=== PATIENT | male | born 1980 ===

== ENCOUNTER 2017-11-06 19:15 | Inpatient (IN) | payer OTHER ==
[2017-11-06] MEDS ORDERED: Sodium Chloride 0.9% 1,000 ML IV ONE (19:58)
--- NOTE | 2017-11-06 20:06 | C.PDOC ---
History Of Present Illness 37 yo male, hx of pud and dm, presents with abdominal pain x 2 days. h/o of pud 1 yr ago. also h/o of etoh pancreatitis (+)n/v/d, no hememesis, no melena, hematochezia. Time Seen by Provider: 11/06/17 19:53 Chief Complaint (Nursing): Abdominal Pain Past Medical History Reviewed: Historical Data, Nursing Documentation, Vital Signs Vital Signs: Last Vital Signs Temp 97.4 F L 11/06/17 19:22 Pulse 98 H 11/06/17 19:22 Resp 20 11/06/17 19:22 BP 114/65 11/06/17 19:22 Pulse Ox 100 11/07/17 00:02 - Medical History PMH: Gastrointestinal Ulcer, Pancreatitis Family History: States: Unknown Family Hx - Social History Hx Alcohol Use: Yes Hx Substance Use: Yes - Immunization History Hx Tetanus Toxoid Vaccination: No Hx Influenza Vaccination: No Hx Pneumococcal Vaccination: No Review Of Systems Except As Marked, All Systems Reviewed And Found Negative. Gastrointestinal: Positive for: Nausea, Vomiting, Abdominal Pain, Diarrhea Physical Exam - Physical Exam Appears: Well, No Acute Distress Skin: Normal Color, Warm, Dry Eye(s): bilateral: Normal Inspection, PERRL, EOMI Nose: Normal Throat: Normal Neck: Normal Cardiovascular: Rhythm Regular Respiratory: Normal Breath Sounds Gastrointestinal/Abdominal: Normal Exam, Soft, Tenderness (epigastric), No Guarding, No Rebound Back: Normal Inspection Extremity: Normal ROM ED Course And Treatment - Laboratory Results Result Diagrams: 11/06/17 20:26 11/06/17 20:26 O2 Sat by Pulse Oximetry: 100 Medical Decision Making Medical Decision Making: r/o pud gastrits pancreatitis- labs imaging pending 1200: ct shows e/o of acut pancreatitis. discussed with dr fields accepts admission. Disposition - Disposition Disposition: HOSPITALIZED Disposition Time: 00:02 Condition: STABLE - Clinical Impression Clinical Impression: Pancreatitis Decision To Admit - Pt Status Changed To: Hospital Disposition Of: Inpatient - Admit Certification Admit to Inpatient:: After my assessment, the patient will require hospitalization for at least two midnights. This is because of the severity of symptoms shown, intensity of services needed, and/or the medical risk in this patient being treated as an outpatient. - InPatient: Physician Admission Certification:: pt with pancreatitis. - . Bed Request Type: Regular Admitting Physician: Russ Steiner Patient Diagnosis: Pancreatitis
[2017-11-06 20:32] LABS: BASO % 0.6 % (0.0-2.0); EOS # 0.2 K/uL (0.0-0.7); EOS % 3.8 % (0.0-4.0); HEMOGLOBIN 15.2 g/dL (12.0-18.0); LYMPH # 1.7 K/uL (1.0-4.3); LYMPH % 26.4 % (20.0-40.0); MEAN CELL VOLUME 82.2 fL (80.0-94.0); MEAN CORPUSCULAR HEMOGLOBIN 27.1 pg (27.0-31.0); MEAN PLATELET VOLUME 9.5 fL (7.2-11.7); MONO # 0.6 K/uL (0.0-0.8); MONO % 9.3 % (0.0-10.0); NEUT # 3.8 K/uL (1.8-7.0); NEUT % 59.9 % (50.0-75.0); RBC 5.62 Mil/uL (4.40-5.90); RED CELL DISTRIBUTION WIDTH 13.9 % (11.5-14.5); WHITE BLOOD COUNT 6.3 K/uL (4.8-10.8)
[2017-11-06 20:42] LABS: ALB/GLOB RATIO 1.2 (1.0-2.1); ALBUMIN 3.9 g/dL (3.5-5.0); ALT/SGPT 47 U/L (21-72); AST/SGOT 38 U/L (17-59); BLOOD UREA NITROGEN 11 mg/dL (9-20); CALCIUM 8.1 mg/dl (8.6-10.4); GFR AFRICAN-AMERICAN > 60; GFR NON-AFRICAN AMERICAN > 60; LIPASE 491 U/L (23-300)
[2017-11-06] MEDS ORDERED: Morphine 4 MG/ML VIAL ONE (20:57)
[2017-11-06 21:38] LABS: SQUAMOUS EPITHIAL < 1 /hpf (0-5); URINE BILIRUBIN NEGATIVE (NEGATIVE); URINE BLOOD 1+ (NEGATIVE); URINE CLARITY Clear (Clear); URINE COLOR Yellow (YELLOW); URINE GLUCOSE (UA) NORMAL (Normal); URINE LEUKOCYTE ESTERASE NEG Leu/uL (Negative); URINE NITRATE NEGATIVE (NEGATIVE); URINE PROTEIN NEGATIVE (NEGATIVE); URINE UROBILINOGEN NORMAL mg/dL (0.2-1.0)
[2017-11-06] MEDS ORDERED: Iodixanol 320 MG/ML 100 ML BOTTLE IV ONE (22:15)
--- NOTE | 2017-11-06 22:56 | CT ---
EXAM: CT Abdomen and Pelvis With Intravenous Contrast CLINICAL HISTORY: 37 years old, male; Pain; Abdominal pain; Generalized; Additional info: Upper abd pain h/o of pancreatitis TECHNIQUE: Axial computed tomography images of the abdomen and pelvis with intravenous contrast. All CT scans at this facility use one or more dose reduction techniques, viz.: automated exposure control; ma/kV adjustment per patient size (including targeted exams where dose is matched to indication; i.e. head); or iterative reconstruction technique. Coronal and sagittal reformatted images were created and reviewed. CONTRAST: 100 mL of [id number] administered intravenously. COMPARISON: No relevant prior studies available. FINDINGS: Lower thorax: Atelectasis/scarring at the left lung base. ABDOMEN: Liver: No acute abnormality as visualized. Gallbladder and bile ducts: No acute abnormality as visualized. Pancreas: Appears edematous without surrounding fluid/inflammatory changes. Spleen: No splenomegaly. Splenule. Adrenals: No acute abnormality as visualized. Kidneys and ureters: Evidence of nonobstructing right intrarenal calculus. Evaluation for calculi limited due to contrast. Symmetric emhancement. No hydronephrosis. Stomach and bowel: Evaluation of the bowel limited without enteric contrast. No obstruction. No definitive focus of mucosal thickening. Followup as warranted. PELVIS: Bladder: No acute abnormality as visualized. Reproductive: No acute abnormality as visualized. ABDOMEN and PELVIS: Intraperitoneal space: No free air. No significant fluid collection. Bones : No acute finding. Vasculature: No acute abnormality as visualized. No abdominal aortic aneurysm. Lymph nodes: No acute abnormality as visualized. IMPRESSION: Pancreas appears full/edematous without surrounding fluid/inflammatory changes. Correlate clinically to evaluate for/exclude acute pancreatitis. Evidence of nonobstructing right intrarenal calculus. Evaluation for calculi limited due to contrast. No obstructing calculus or hydronephrosis noted. Please see additional details/findings as above. Correlate clinically. Followup as warranted.
--- NOTE | 2017-11-07 01:00 | CP.PCM.HP ---
<Tamra Perez - Last Filed: 11/07/17 06:40> History of Present Illness - History of Present Illness History of Present Illness: Medicine Note for Hospital Service CC: abdominal pain n/v/d x 2 days. HPI: 37 yo Male with PMHx of DM and pancreatitis presents to the ED with abdominal pain, n/v/d x 2 days. Patient reports he started to feel nauseous and vomiting (up to 4 episodes), and diarrhea (up to 8 episodes) for the past 2 days. He admitted to some blood in stool after persistent episodes. Patient reports he has been unable to tolerate solids or liquids x 1 day. Did not take anything for the pain. Last drink was 2 weekends ago. Last time he saw his PMD was 2-3 months ago. Denied fever, chills, headache, chest pain, SOB, or urinary symptoms. PMHx: DM, Pancreatitis, Gastritis? Hx of gastric Ulcer (endoscopy in [place] done last year) PSHx: Denied Meds: Denied (used to take Metformin but was instructed by PMD to stop taking it ) All: NKDA SHx: Smokes 10 cigarretes a day for the past 5-10 years, drinks 2-3 beers on weekends, admits to marijuana use. FHx: Unremarkable PMD: Ameen, Russ Present on Admission - Present on Admission Any Indicators Present on Admission: No Past Patient History - Past Social History Smoking Status: Heavy Smoker > 10 Cigarettes Daily - ENDOCRINE/METABOLIC Hx Diabetes Mellitus Type 2: Yes - GASTROINTESTINAL Hx Pancreatitis: Yes - PSYCHIATRIC Hx Substance Use: Yes - ANESTHESIA Hx Anesthesia: No Meds Allergies/Adverse Reactions: Allergies Allergy/AdvReac Type Severity Reaction Status Date / Time No Known Allergies Allergy Unverified 11/06/17 19:26 Physical Exam - Constitutional Appears: No Acute Distress - Head Exam Head Exam: NORMAL INSPECTION, NORMOCEPHALIC - Eye Exam Eye Exam: EOMI, Normal appearance, PERRL Pupil Exam: NORMAL ACCOMODATION - ENT Exam ENT Exam: Mucous Membranes Moist, Normal Exam - Neck Exam Neck exam: Positive for: Normal Inspection - Respiratory Exam Respiratory Exam: Clear to Auscultation Bilateral, NORMAL BREATHING PATTERN. absent: Decreased Breath Sounds, Wheezes - Cardiovascular Exam Cardiovascular Exam: REGULAR RHYTHM - GI/Abdominal Exam GI & Abdominal Exam: Normal Bowel Sounds, Soft, Tenderness (TTP epigastric ). absent: Distended - Extremities Exam Extremities exam: Positive for: normal inspection, pedal pulses present. Negative for: pedal edema, tenderness - Neurological Exam Neurological exam: Alert, Oriented x3 - Psychiatric Exam Psychiatric exam: Normal Affect, Normal Mood - Skin Skin Exam: Dry, Intact, Normal Color, Warm Results - Vital Signs Recent Vital Signs: Last Vital Signs Temp 98.1 F 11/07/17 00:44 Pulse 58 L 11/07/17 00:44 Resp 16 11/07/17 00:44 BP 101/60 11/07/17 00:44 Pulse Ox 96 11/07/17 00:44 - Labs Result Diagrams: 11/06/17 20:26 11/06/17 20:26 Labs: Laboratory Results - last 24 hr 11/06/17 11/06/17 11/06/17 20:26 20:26 20:26 WBC 6.3 RBC 5.62 Hgb 15.2 Hct 46.2 MCV 82.2 MCH 27.1 MCHC 33.0 RDW 13.9 Plt Count 155 MPV 9.5 Neut % (Auto) 59.9 Lymph % (Auto) 26.4 [facility] % (Auto) 9.3 Eos % (Auto) 3.8 Baso % (Auto) 0.6 Neut # 3.8 Lymph # 1.7 [facility] # 0.6 Eos # 0.2 Baso # 0.0 Sodium 133 Potassium 4.0 Chloride 98 Carbon Dioxide 27 Anion Gap 12 BUN 11 Creatinine 1.1 Est GFR ( Amer) > 60 Est GFR (Non-Af Amer) > 60 Random Glucose 79 Calcium 8.1 L Total Bilirubin 0.9 AST 38 ALT 47 Alkaline Phosphatase 83 Total Protein 7.2 Albumin 3.9 Globulin 3.2 Albumin/Globulin Ratio 1.2 Lipase 491 H Urine Color Yellow Urine Clarity Clear Urine pH 5.0 Ur Specific [place] 1.028 Urine Protein Negative Urine Glucose (UA) Normal Urine Ketones Negative Urine Blood 1+ H Urine Nitrate Negative Urine Bilirubin Negative Urine Urobilinogen Normal Ur Leukocyte Esterase Neg Urine WBC (Auto) < 1 Urine RBC (Auto) 11 H Ur Squamous Epith Cells < 1 Alcohol, Quantitative 11/06/17 20:54 WBC RBC Hgb Hct MCV MCH MCHC RDW Plt Count MPV Neut % (Auto) Lymph % (Auto) [facility] [facility] % (Auto) Eos % (Auto) Baso % (Auto) Neut # Lymph # [facility] [facility] # Eos # Baso # Sodium Potassium Chloride Carbon Dioxide Anion Gap BUN Creatinine Est GFR ( Amer) Est GFR (Non-Af Amer) Random Glucose Calcium Total Bilirubin AST ALT Alkaline Phosphatase Total Protein Albumin Globulin Albumin/Globulin Ratio Lipase Urine Color Urine Clarity Urine pH Ur Specific [place] Urine Protein Urine Glucose (UA) Urine Ketones Urine Blood Urine Nitrate Urine Bilirubin Urine Urobilinogen Ur Leukocyte Esterase Urine WBC (Auto) Urine RBC (Auto) Ur Squamous Epith Cells Alcohol, Quantitative < 10 Assessment & Plan - Assessment and Plan (Free Text) Assessment: 37 yo Male with PMHx of DM and pancreatitis presents to the ED with abdominal pain, n/v/d x 2 days, found to have pancreatitis and possible gastroenteritis. Plan: Pancreatitis Lipase 491, f/u amylase Will start on liquid diet this morning, will monitor and adjust diet as tolerated Imaging: CT Abdomen and Pelvis with PO contrast only- Pancreas appears full/edematous without surrounding fluid/inflammatory changes. Correlate clinically to evaluate for/exclude acute pancreatitis. Evidence of nonobstructing right intrarenal calculus. Evaluation for calculi limited due to contrast. No obstructing calculus or hydronephrosis noted. Meds: NS @ 150cc/hr Morphine PRN, Zofran PRN Gastroenteritis Fluid levels noted on CT abdomen and pelvis - indicative of diarrhea F/U stool studies, stool occult Hx DM F/U HbA1C Hx Gastritis? Gastric Ulcer Hx of Tobacco Use Disorder Smoking Cessation encouraged Nicotine patch Prophylatic Measures GI PPX: Protonix 40mg IVP daily DVT PPX: SCDs, held VTE - due to reported blood in stool DW Dr. Steiner, Tamra Perez DO, PGY-1 <Russ Steiner P - Last Filed: 11/07/17 08:34> Results - Vital Signs Recent Vital Signs: Last Vital Signs Temp 97.7 F 11/07/17 02:31 Pulse 61 11/07/17 02:31 Resp 18 11/07/17 02:31 BP 114/71 11/07/17 02:31 Pulse Ox 97 11/07/17 02:31 - Labs Result Diagrams: 11/07/17 07:50 11/07/17 07:50 Labs: Laboratory Results - last 24 hr 11/06/17 11/06/17 11/06/17 20:26 20:26 20:26 WBC 6.3 RBC 5.62 Hgb 15.2 Hct 46.2 MCV 82.2 MCH 27.1 MCHC 33.0 RDW 13.9 Plt Count 155 MPV 9.5 Neut % (Auto) 59.9 Lymph % (Auto) 26.4 [facility] % (Auto) 9.3 Eos % (Auto) 3.8 Baso % (Auto) 0.6 Neut # 3.8 Lymph # 1.7 [facility] # 0.6 Eos # 0.2 Baso # 0.0 Sodium 133 Potassium 4.0 Chloride 98 Carbon Dioxide 27 Anion Gap 12 BUN 11 Creatinine 1.1 Est GFR ( Amer) > 60 Est GFR (Non-Af Amer) > 60 Random Glucose 79 Calcium 8.1 L Total Bilirubin 0.9 AST 38 ALT 47 Alkaline Phosphatase 83 Total Protein 7.2 Albumin 3.9 Globulin 3.2 Albumin/Globulin Ratio 1.2 Triglycerides Cholesterol HDL Cholesterol Lipase 491 H Urine Color Yellow Urine Clarity Clear Urine pH 5.0 Ur Specific [place] 1.028 Urine Protein Negative Urine Glucose (UA) Normal Urine Ketones Negative Urine Blood 1+ H Urine Nitrate Negative Urine Bilirubin Negative Urine Urobilinogen Normal Ur Leukocyte Esterase Neg Urine WBC (Auto) < 1 Urine RBC (Auto) 11 H Ur Squamous Epith Cells < 1 Alcohol, Quantitative Influenza Typ A,B (EIA) 11/06/17 11/07/17 11/07/17 20:54 06:44 07:50 WBC RBC Hgb Hct MCV MCH MCHC RDW Plt Count MPV Neut % (Auto) Lymph % (Auto) [facility] % (Auto) Eos % (Auto) Baso % (Auto) Neut # Lymph # [facility] [facility] # Eos # Baso # Sodium 133 Potassium 4.0 Chloride 100 Carbon Dioxide 28 Anion Gap 10 BUN 8 L Creatinine 1.1 Est GFR ( Amer) > 60 Est GFR (Non-Af Amer) > 60 Random Glucose 81 Calcium 7.8 L Total Bilirubin 0.7 AST 33 ALT 43 Alkaline Phosphatase 68 Total Protein 6.1 L Albumin 3.4 L Globulin 2.8 Albumin/Globulin Ratio 1.2 Triglycerides 78 Cholesterol 108 HDL Cholesterol 27 L Lipase Urine Color Urine Clarity Urine pH Ur Specific [place] Urine Protein Urine Glucose (UA) Urine Ketones Urine Blood Urine Nitrate Urine Bilirubin Urine Urobilinogen Ur Leukocyte Esterase Urine WBC (Auto) Urine RBC (Auto) Ur Squamous Epith Cells Alcohol, Quantitative < 10 Influenza Typ A,B (EIA) Negative for flu a/b 11/07/17 07:50 WBC 5.0 RBC 5.13 Hgb 14.1 Hct 42.8 MCV 83.4 MCH 27.5 MCHC 33.0 RDW 13.7 Plt Count 141 MPV 9.8 Neut % (Auto) 53.1 Lymph % (Auto) 30.7 [facility] % (Auto) 12.3 H Eos % (Auto) 3.1 Baso % (Auto) 0.8 Neut # 2.7 Lymph # 1.5 [facility] # 0.6 Eos # 0.2 Baso # 0.0 Sodium Potassium Chloride Carbon Dioxide Anion Gap BUN Creatinine Est GFR ( Amer) Est GFR (Non-Af Amer) Random Glucose Calcium Total Bilirubin AST ALT Alkaline Phosphatase Total Protein Albumin Globulin Albumin/Globulin Ratio Triglycerides Cholesterol HDL Cholesterol Lipase Urine Color Urine Clarity Urine pH Ur Specific [place] Urine Protein Urine Glucose (UA) Urine Ketones Urine Blood Urine Nitrate Urine Bilirubin Urine Urobilinogen Ur Leukocyte Esterase Urine WBC (Auto) Urine RBC (Auto) Ur Squamous Epith Cells Alcohol, Quantitative Influenza Typ A,B (EIA) Attending/Attestation - Attestation I have personally seen and examined this patient.: Yes I have fully participated in the care of the patient.: Yes I have reviewed all pertinent clinical information: Yes Notes (Text): Assessment GE by symptoms, but ? slight pancreatic edema without surrounding stranding, lipase 491 H/o peptic ulcer Alcoholism mentions few beers a wk Plan Symptomatic, supportive care IVF Start clear liquid diet advance as tolerated Stool w/u See orders for detail.
[2017-11-07] MEDS ORDERED: Sodium Chloride 0.9% 1,000 ML IV SCH (03:00)
[2017-11-07] MEDS: Sodium Chloride 0.9% 1,000 ML IV SCH ×3 (05:38→21:50)
[2017-11-07 08:03] LABS: BASO % 0.8 % (0.0-2.0); EOS # 0.2 K/uL (0.0-0.7); EOS % 3.1 % (0.0-4.0); HEMOGLOBIN 14.1 g/dL (12.0-18.0); LYMPH # 1.5 K/uL (1.0-4.3); LYMPH % 30.7 % (20.0-40.0); MEAN CELL VOLUME 83.4 fL (80.0-94.0); MEAN CORPUSCULAR HEMOGLOBIN 27.5 pg (27.0-31.0); MEAN PLATELET VOLUME 9.8 fL (7.2-11.7); MONO # 0.6 K/uL (0.0-0.8); MONO % 12.3 % (0.0-10.0); NEUT # 2.7 K/uL (1.8-7.0); NEUT % 53.1 % (50.0-75.0); RBC 5.13 Mil/uL (4.40-5.90); RED CELL DISTRIBUTION WIDTH 13.7 % (11.5-14.5)
[2017-11-07 08:25] LABS: ALB/GLOB RATIO 1.2 (1.0-2.1); ALBUMIN 3.4 g/dL (3.5-5.0); ALT/SGPT 43 U/L (21-72); AST/SGOT 33 U/L (17-59); BLOOD UREA NITROGEN 8 mg/dL (9-20); CALCIUM 7.8 mg/dl (8.6-10.4); GFR AFRICAN-AMERICAN > 60; GFR NON-AFRICAN AMERICAN > 60; HDL CHOLESTEROL 27 mg/dL (30-70)
[2017-11-07 08:35] LABS: LDL CHOLESTEROL 61 mg/dL (0-129)
[2017-11-07 09:09] VITALS: RESP 20
[2017-11-07] MEDS: Ciprofloxacin 400mg/200ml D5W 400 MG/200 ML BAG IVPB SCH ×2 (12:01→23:43)
--- NOTE | 2017-11-07 13:57 | CP.PCM.PN ---
<Meagan Keyes - Last Filed: 11/07/17 13:54> Subjective - Date & Time of Evaluation Date of Evaluation: 11/07/17 Time of Evaluation: 13:54 - Subjective Subjective: Medicine progress note for Dr. Goldman's service Patient was seen and examined at bedside in no acute distress. Patient reports feeling better than previously, however, he recently took pain medication. He says he is tolerating his liquid diet, denies nausea, vomiting, and diarrhea. Patient states his last drink was 2 weeks ago and he only had one beer. He states he used to drink heavily and was hospitalized twice for pancreatitis when he was 16 years old. Patient says he stopped drinking heavily since age 19. Patient also reports being hospitalized about 1 year ago for bleeding ulcers. Otherwise, patient denies chest pain, headaches, fevers, leg pain, and dizziness. Objective - Vital Signs/Intake and Output Vital Signs (last 24 hours): Temp Pulse Resp BP Pulse Ox 97.9 F 51 L 20 129/61 95 11/07/17 07:40 11/07/17 07:40 11/07/17 07:40 11/07/17 07:40 11/07/17 07:40 Intake and Output: 11/07/17 11/07/17 06:59 18:59 Intake Total 375 Balance 375 - Medications Medications: Current Medications Sodium Chloride (Sodium Chloride 0.9%) 1,000 mls @ 150 mls/hr IV .Q6H40M [facility] Last Admin: 11/07/17 11:20 Dose: 150 mls/hr Ciprofloxacin (Cipro 400mg/200ml Dsw) 400 mg in 200 mls @ 133 mls/hr IVPB Q12H [facility] Last Admin: 11/07/17 12:01 Dose: 133 mls/hr Metronidazole (Flagyl) 500 mg in 100 mls @ 100 mls/hr IVPB Q8 [facility] Ketorolac Tromethamine (Toradol) 30 mg IVP Q6 PRN PRN Reason: Pain, moderate (4-7) Stop: 11/09/17 11:25 Nicotine (Nicoderm Cq) 1 patch TD DAILY [facility] Last Admin: 11/07/17 11:30 Dose: Not Given Ondansetron HCl (Zofran Inj) 4 mg IVP Q6H [facility] Last Admin: 11/07/17 11:44 Dose: Not Given Pantoprazole Sodium (Protonix Inj) 40 mg IVP DAILY [facility] Last Admin: 11/07/17 11:16 Dose: 40 mg Pneumococcal Polyvalent Vaccine (Pneumovax 23 Vaccine) 0.5 ml IM .ONCE ONE Stop: 11/08/17 10:01 - Labs Labs: 11/07/17 07:50 11/07/17 07:50 - Constitutional Appears: Non-toxic, No Acute Distress - Head Exam Head Exam: ATRAUMATIC, NORMAL INSPECTION - Eye Exam Eye Exam: EOMI - ENT Exam ENT Exam: Mucous Membranes Moist - Respiratory Exam Respiratory Exam: Clear to Ausculation Bilateral, NORMAL BREATHING PATTERN. absent: Rhonchi, Wheezes, Respiratory Distress - Cardiovascular Exam Cardiovascular Exam: REGULAR RHYTHM, +S1, +S2 - GI/Abdominal Exam GI & Abdominal Exam: Soft, Tenderness (mild tenderness with deep palpation), Normal Bowel Sounds. absent: Guarding - Extremities Exam Extremities Exam: Normal Inspection. absent: Pedal Edema, Tenderness - Neurological Exam Neurological Exam: Alert, Awake, Oriented x3 - Psychiatric Exam Psychiatric exam: Normal Affect, Normal Mood - Skin Skin Exam: Dry, Intact, Normal Color, Warm Assessment and Plan - Assessment and Plan (Free Text) Plan: Assessment: 37 yo Male with PMHx of DM and pancreatitis presents to the ED with abdominal pain, n/v/d x 2 days, found to have pancreatitis and possible gastroenteritis. Plan: Pancreatitis Assesment & Plan: * Lipase 491, amylase 3231 * Started liquid diet on morning of 09/07, will monitor and adjust diet as tolerated * CT Abdomen and Pelvis with PO contrast only- Pancreas appears full/edematous without surrounding fluid/inflammatory changes. Correlate clinically to evaluate for/exclude acute pancreatitis. Evidence of nonobstructing right intrarenal calculus. Evaluation for calculi limited due to contrast. No obstructing calculus or hydronephrosis noted. * Abdominal US: ordered, f/u results; patient is NPO for procedure; can continue liquid diet after completion of US. Medications: * NS @ 150cc/hr * Morphine PRN, Zofran PRN Gastroenteritis Assesment & Plan: * Fluid levels noted on CT abdomen and pelvis - indicative of diarrhea * F/U stool studies, stool occult * Started Cipro 400mg IV Q12h and Flagyl 500mg IV Q8h (11/07/17) Hx DM Assesment & Plan: * HbA1C: 5.9 * Continue to monitor, accucheck Hx Gastric Ulcer Hx of Tobacco Use Disorder Assesment & Plan: * Smoking Cessation encouraged * Nicotine patch Prophylatic Measures * GI PPX: Protonix 40mg IVP daily * DVT PPX: SCDs, held VTE - due to reported blood in stool <Kristina Goldman V - Last Filed: 11/08/17 08:38> Objective - Vital Signs/Intake and Output Vital Signs (last 24 hours): Temp Pulse Resp BP Pulse Ox 98.0 F 55 L 20 108/65 97 11/08/17 08:26 11/08/17 08:26 11/08/17 08:26 11/08/17 08:26 11/08/17 08:26 Intake and Output: 11/08/17 11/08/17 06:59 18:59 Intake Total 1000 Balance 1000 - Medications Medications: Current Medications Sodium Chloride (Sodium Chloride 0.9%) 1,000 mls @ 150 mls/hr IV .Q6H40M [facility] Last Admin: 11/08/17 07:36 Dose: 150 mls/hr Ciprofloxacin (Cipro 400mg/200ml Dsw) 400 mg in 200 mls @ 133 mls/hr IVPB Q12H [facility] Last Admin: 11/07/17 23:43 Dose: 133 mls/hr Metronidazole (Flagyl) 500 mg in 100 mls @ 100 mls/hr IVPB Q8 [facility] Last Admin: 11/08/17 05:32 Dose: 100 mls/hr Morphine Sulfate (Morphine) 1 mg IV Q6 PRN PRN Reason: Pain, severe (8-10) Last Admin: 11/07/17 22:10 Dose: 1 mg Nicotine (Nicoderm Cq) 1 patch TD DAILY [facility] Last Admin: 11/07/17 11:30 Dose: Not Given Ondansetron HCl (Zofran Inj) 4 mg IVP Q6H [facility] Last Admin: 11/08/17 03:09 Dose: Not Given Pantoprazole Sodium (Protonix Inj) 40 mg IVP DAILY [facility] Last Admin: 11/07/17 11:16 Dose: 40 mg Pneumococcal Polyvalent Vaccine (Pneumovax 23 Vaccine) 0.5 ml IM .ONCE ONE Stop: 11/08/17 10:01 - Labs Labs: 11/07/17 07:50 11/07/17 07:50 Attending/Attestation - Attestation I have personally seen and examined this patient.: Yes I have fully participated in the care of the patient.: Yes I have reviewed all pertinent clinical information, including history, physical exam and plan: Yes Notes (Text): This is a late computer entry for 11/07/2017. Patient seen, examined, case discussed with medical billing coordinator. Patient seen at bedside. Patient has improving abdominal pain patient is ordered for abdominal ultrasound to rule out gallstones. Reviewed lipid panel does not appear to have hypertriglyceridemia. Patient does admit to alcohol use but denies acute use over the past 3 days. Patient reports he has not had a bowel movement as of this morning. Awaiting bowel movement for stool studies. Patient started on Cipro and Flagyl to come her for infectious causes of colitis. Patient reports he has had a recent endoscopy about a year ago for bleeding gastric ulcer. Will refrain from NSAID use. Patient will call for abdominal ultrasound and resume liquid diet will monitor for bowel movement will continue IV fluids Will monitor patient and see if it's possible to advance diet and for possible discharge planning in the next 1-2 days. Assessment/Plan 1) Pancreatitis Assesment & Plan: * Lipase 491, amylase 3231 * Palermo's Criteria: 0 * Started liquid diet on morning of 11/07, will monitor and adjust diet as tolerated * CT Abdomen and Pelvis with PO contrast only (11/06/17)- Pancreas appears full/ edematous without surrounding fluid/inflammatory changes. Correlate clinically to evaluate for/exclude acute pancreatitis. Evidence of nonobstructing right intrarenal calculus. Evaluation for calculi limited due to contrast. No obstructing calculus or hydronephrosis noted. * Abdominal US (11/07/17): echogenic liver may be seen in setting of hepatic parenchymal disease or fatty infiltration Medications: * NS @ 150cc/hr * Morphine PRN, Zofran PRN 2) Gastroenteritis Assesment & Plan: * Fluid levels noted on CT abdomen and pelvis - indicative of diarrhea * F/U stool studies including ova and parasite, culture, C. Dif, and leukocytes , stool occult * Started Cipro 400mg IV Q12h and Flagyl 500mg IV Q8h (11/07/17) 3) History of Diabetes Assesment & Plan: * HbA1C: 5.9 * Controlled * Continue to monitor, accuchecks QAC and HS 4) Hx Gastric Ulcer Assesment & Plan: * Refrain from NSAIDs 5) Hx of Tobacco Use Disorder Assesment & Plan: * Smoking Cessation encouraged * Nicotine patch 6) Prophylatic Measures * GI PPX: Protonix 40mg IVP daily * DVT PPX: SCDs, held VTE - due to reported blood in stool
[2017-11-07] MEDS: metroNIDAZOLE IV 500 mg/100 ml 500 MG/100 ML BAG IVPB SCH ×2 (14:27→22:10)
--- NOTE | 2017-11-07 15:46 | US ---
HISTORY: r/o pancreatitis COMPARISON: CT abdomen pelvis with IV contrast performed 11/06/17 TECHNIQUE: Sonographic evaluation of the abdomen. FINDINGS: LIVER: Measures 13.3 cm in sagittal dimension. Echogenic liver may be seen in setting of hepatic parenchymal disease or fatty infiltration. No focal hepatic mass identified. The main portal vein appears patent with normal directional flow. No intrahepatic bile duct dilatation. GALLBLADDER: No gallstones. No gallbladder wall thickening. Negative sonographic Tran's sign as assessed by the subway operator. COMMON BILE DUCT: Measures 4 mm. PANCREAS: Not well visualized. RIGHT KIDNEY: Measures 9.5 x 5.6 x 5.4cm. No obstructing calculus or hydronephrosis identified. LEFT KIDNEY: Measures 10.2 x 5.1 x 5.6cm. No obstructing calculus or hydronephrosis identified. SPLEEN: Measures approximately 10.8 cm. AORTA: Limited views appear unremarkable. IVC: Limited views appear unremarkable. OTHER FINDINGS: None. IMPRESSION: Echogenic liver may be seen in setting of hepatic parenchymal disease or fatty infiltration.
[2017-11-08] MEDS: Sodium Chloride 0.9% 1,000 ML IV SCH ×2 (02:10→07:36)
[2017-11-08] MEDS: metroNIDAZOLE IV 500 mg/100 ml 500 MG/100 ML BAG IVPB SCH (05:32)
--- NOTE | 2017-11-08 06:49 | CP.PCM.PN ---
Subjective - Date & Time of Evaluation Date of Evaluation: 11/08/17 Time of Evaluation: 06:49 Objective - Vital Signs/Intake and Output Vital Signs (last 24 hours): Temp Pulse Resp BP Pulse Ox 97.5 F L 52 L 20 101/66 96 11/07/17 23:40 11/07/17 23:40 11/07/17 23:40 11/07/17 23:40 11/07/17 23:40 Intake and Output: 11/07/17 11/08/17 18:59 06:59 Intake Total 1700 1000 Balance 1700 1000 - Medications Medications: Current Medications Sodium Chloride (Sodium Chloride 0.9%) 1,000 mls @ 150 mls/hr IV .Q6H40M [facility] Last Admin: 11/08/17 02:10 Dose: Not Given Ciprofloxacin (Cipro 400mg/200ml Dsw) 400 mg in 200 mls @ 133 mls/hr IVPB Q12H [facility] Last Admin: 11/07/17 23:43 Dose: 133 mls/hr Metronidazole (Flagyl) 500 mg in 100 mls @ 100 mls/hr IVPB Q8 [facility] Last Admin: 11/08/17 05:32 Dose: 100 mls/hr Morphine Sulfate (Morphine) 1 mg IV Q6 PRN PRN Reason: Pain, severe (8-10) Last Admin: 11/07/17 22:10 Dose: 1 mg Nicotine (Nicoderm Cq) 1 patch TD DAILY [facility] Last Admin: 11/07/17 11:30 Dose: Not Given Ondansetron HCl (Zofran Inj) 4 mg IVP Q6H [facility] Last Admin: 11/08/17 03:09 Dose: Not Given Pantoprazole Sodium (Protonix Inj) 40 mg IVP DAILY [facility] Last Admin: 11/07/17 11:16 Dose: 40 mg Pneumococcal Polyvalent Vaccine (Pneumovax 23 Vaccine) 0.5 ml IM .ONCE ONE Stop: 11/08/17 10:01 - Labs Labs: 11/07/17 07:50 11/07/17 07:50
[2017-11-08 08:27] VITALS: BP 108/65; PULSE 55; TEMP 98; O2SAT 97
[2017-11-08 09:30] LABS: BASO % 0.8 % (0.0-2.0); EOS # 0.2 K/uL (0.0-0.7); EOS % 3.8 % (0.0-4.0); HEMOGLOBIN 14.1 g/dL (12.0-18.0); LYMPH # 1.5 K/uL (1.0-4.3); LYMPH % 37.4 % (20.0-40.0); MEAN CELL VOLUME 82.5 fL (80.0-94.0); MEAN CORPUSCULAR HEMOGLOBIN 26.9 pg (27.0-31.0); MEAN CORPUSCULAR HGB CONC 32.6 g/dL (33.0-37.0); MEAN PLATELET VOLUME 10.1 fL (7.2-11.7); MONO # 0.5 K/uL (0.0-0.8); MONO % 11.3 % (0.0-10.0); NEUT # 1.9 K/uL (1.8-7.0); NEUT % 46.7 % (50.0-75.0); NRBC % 0.3 % (0.0-2.0); RBC 5.24 Mil/uL (4.40-5.90); RED CELL DISTRIBUTION WIDTH 13.6 % (11.5-14.5)
[2017-11-08 09:40] LABS: ALBUMIN 3.3 g/dL (3.5-5.0); ALT/SGPT 34 U/L (21-72); AST/SGOT 25 U/L (17-59); BLOOD UREA NITROGEN 7 mg/dL (9-20); GFR AFRICAN-AMERICAN > 60; GFR NON-AFRICAN AMERICAN > 60; MAGNESIUM 1.6 mg/dL (1.6-2.3)
[2017-11-08] MEDS ORDERED: Pneumococcal 23-Valent Vaccine IM ONE (10:00)
[2017-11-08] MEDS ORDERED: Influenza Vaccine 60 mcg/0.5 mL SYR (4YR UP) IM ONE (10:00)
[2017-11-08] MEDS: Ciprofloxacin 400mg/200ml D5W 400 MG/200 ML BAG IVPB SCH (10:39)
--- NOTE | 2017-11-08 15:34 | CP.PCM.DIS ---
<Meagan Keyes - Last Filed: 11/08/17 15:31> Provider - Provider Date of Admission: 11/06/17 23:21 Attending physician: Kristina Goldman DO Primary care physician: Dr. Russ Raphael Time Spent in preparation of Discharge (in minutes): 45 Hospital Course - Lab Results Lab Results: Most Recent Lab Values WBC 4.0 K/uL (4.8-10.8) L 11/08/17 09:05 RBC 5.24 Mil/uL (4.40-5.90) 11/08/17 09:05 Hgb 14.1 g/dL (12.0-18.0) 11/08/17 09:05 Hct 43.3 % (35.0-51.0) 11/08/17 09:05 MCV 82.5 fL (80.0-94.0) 11/08/17 09:05 MCH 26.9 pg (27.0-31.0) L 11/08/17 09:05 MCHC 32.6 g/dL (33.0-37.0) L 11/08/17 09:05 RDW 13.6 % (11.5-14.5) 11/08/17 09:05 Plt Count 140 K/uL (130-400) 11/08/17 09:05 MPV 10.1 fL (7.2-11.7) 11/08/17 09:05 Neut % (Auto) 46.7 % (50.0-75.0) L 11/08/17 09:05 Lymph % (Auto) 37.4 % (20.0-40.0) 11/08/17 09:05 [place] % (Auto) 11.3 % (0.0-10.0) H 11/08/17 09:05 Eos % (Auto) 3.8 % (0.0-4.0) 11/08/17 09:05 Baso % (Auto) 0.8 % (0.0-2.0) 11/08/17 09:05 Neut # 1.9 K/uL (1.8-7.0) 11/08/17 09:05 Lymph # 1.5 K/uL (1.0-4.3) 11/08/17 09:05 [place] # 0.5 K/uL (0.0-0.8) 11/08/17 09:05 Eos # 0.2 K/uL (0.0-0.7) 11/08/17 09:05 Baso # 0.0 K/uL (0.0-0.2) 11/08/17 09:05 Sodium 136 mmol/L (132-148) 11/08/17 09:05 Potassium 3.9 mmol/L (3.6-5.2) 11/08/17 09:05 Chloride 102 mmol/L (98-107) 11/08/17 09:05 Carbon Dioxide 26 mmol/L (22-30) 11/08/17 09:05 Anion Gap 12 (10-20) 11/08/17 09:05 BUN 7 mg/dL (9-20) L 11/08/17 09:05 Creatinine 1.1 mg/dL (0.8-1.5) 11/08/17 09:05 Est GFR ( Amer) > 60 11/08/17 09:05 Est GFR (Non-Af Amer) > 60 11/08/17 09:05 POC Glucose (mg/dL) 117 mg/dL (65-110) H 11/08/17 11:24 Random Glucose 101 mg/dL (75-110) 11/08/17 09:05 Hemoglobin A1c 5.9 % (4.2-6.5) 11/07/17 07:50 Calcium 8.0 mg/dl (8.6-10.4) L 11/08/17 09:05 Phosphorus 2.8 mg/dL (2.5-4.5) 11/08/17 09:05 Magnesium 1.6 mg/dL (1.6-2.3) 11/08/17 09:05 Total Bilirubin 0.4 mg/dL (0.2-1.3) 11/08/17 09:05 AST 25 U/L (17-59) 11/08/17 09:05 ALT 34 U/L (21-72) 11/08/17 09:05 Alkaline Phosphatase 65 U/L (38-126) 11/08/17 09:05 Total Protein 6.7 g/dL (6.3-8.3) 11/08/17 09:05 Albumin 3.3 g/dL (3.5-5.0) L 11/08/17 09:05 Globulin 3.4 gm/dL (2.2-3.9) 11/08/17 09:05 Albumin/Globulin Ratio 1.0 (1.0-2.1) 11/08/17 09:05 Triglycerides 78 mg/dL (0-149) 11/07/17 07:50 Cholesterol 108 mg/dL (0-199) 11/07/17 07:50 LDL Cholesterol Direct 61 mg/dL (0-129) 11/07/17 07:50 HDL Cholesterol 27 mg/dL (30-70) L 11/07/17 07:50 Lipase 491 U/L (23-300) H 11/06/17 20:26 Urine Color Yellow (YELLOW) 11/06/17 20:26 Urine Clarity Clear (Clear) 11/06/17 20:26 Urine pH 5.0 (5.0-8.0) 11/06/17 20:26 Ur Specific [place] 1.028 (1.003-1.030) 11/06/17 20:26 Urine Protein Negative mg/dL (NEGATIVE) 11/06/17 20:26 Urine Glucose (UA) Normal mg/dL (Normal) 11/06/17 20:26 Urine Ketones Negative mg/dL (NEGATIVE) 11/06/17 20:26 Urine Blood 1+ (NEGATIVE) H 11/06/17 20:26 Urine Nitrate Negative (NEGATIVE) 11/06/17 20:26 Urine Bilirubin Negative (NEGATIVE) 11/06/17 20:26 Urine Urobilinogen Normal mg/dL (0.2-1.0) 11/06/17 20:26 Ur Leukocyte Esterase Neg Malorie/uL (Negative) 11/06/17 20:26 Urine WBC (Auto) < 1 /hpf (0-5) 11/06/17 20:26 Urine RBC (Auto) 11 /hpf (0-3) H 11/06/17 20:26 Ur Squamous Epith Cells < 1 /hpf (0-5) 11/06/17 20:26 Ur Random Amylase 3231 U/L (32-641) H 11/07/17 06:47 Stool Occult Blood Negative (NEGATIVE) 11/07/17 21:08 Alcohol, Quantitative < 10 mg/dl (0-10) 11/06/17 20:54 Influenza Typ A,B (EIA) Negative for flu a/b (NEGATIVE) 11/07/17 06:44 - Hospital Course Hospital Course: CC: abdominal pain n/v/d x 2 days. HPI: 37 yo Male with PMHx of DM and pancreatitis presents to the ED with abdominal pain, n/v/d x 2 days. Patient reports he started to feel nauseous and vomiting (up to 4 episodes), and diarrhea (up to 8 episodes) for the past 2 days. He admitted to some blood in stool after persistent episodes. Patient reports he has been unable to tolerate solids or liquids x 1 day. Did not take anything for the pain. Last drink was 2 weekends ago. Last time he saw his PMD was 2-3 months ago. Denied fever, chills, headache, chest pain, SOB, or urinary symptoms. PMD: Amana maria, Russ PMHx: DM, Pancreatitis, Gastritis? Hx of gastric Ulcer (endoscopy in [place] done last year) PSHx: Denied Meds: Denied (used to take Metformin but was instructed by PMD to stop taking it ) All: NKDA SHx: Smokes 10 cigarretes a day for the past 5-10 years, drinks 2-3 beers on weekends, admits to marijuana use. FHx: Unremarkable Hospital Course: Patient was admitted on 11/07/17 for pancreatitis. In the ED, labs were drawn, imaging was done, and the patient was given fluids, protonix, and zofran. CT of the abdomen/pelvis showed the pancreas appearing full/ edematous without surrounding fluid/inflammatory changes; Correlate clinically to evaluate for/exclude acute pancreatitis; evidence of nonobstructing right intrarenal calculus; evaluation for calculi limited due to contrast; no obstructing calculus or hydronephrosis noted. Patient was given morphine as needed for the pain and put on a liquid diet, which he tolerated without nausea , vomiting or diarrhea. Labs showed an elevated lipase and amylase. Patient was also suspected of having gastroenteritis (fluid levels noted on CT of abdomen/ pelvis). Stool occult was negative. Patient did not have any episodes of diarrhea while in the hospital; he has had one normal bowel movement. Patient was started on ciprofloxacin and flagyl on 11/07/17. Abdominal ultrasound was ordered and showed an echogenic liver, may be seen in setting of hepatic parenchymal disease or fatty infiltration. Patient was seen and examined in the morning of 11/08/17. Patient reports feeling better and only have mild pain. He has tolerated his liquid diet and is requesting a regular meal. Patient denies having nausea, vomiting, diarrhea. Patient has history of diabetes, which was monitored throughout hospital stay. Patient also has a history of smoking; patient was educated and advised to stop smoking. Patient was given nicoderm patch throughout his hospital stay. Patient is stable for discharge to home. Patient is advised to avoid all alcohol and to follow up with his PMD. Patient must continue oral antibiotics for 5 more days (for a total of 7 days of antibiotics). This is a brief summary of the hospital course. Please see EMR for more details. Discharge Exam - Head Exam Head Exam: ATRAUMATIC, NORMAL INSPECTION - Eye Exam Eye Exam: EOMI, Normal appearance - ENT Exam ENT Exam: Mucous Membranes Moist - Respiratory Exam Respiratory Exam: Clear to PA & Lateral, NORMAL BREATHING PATTERN, UNREMARKABLE. absent: Rales, Rhonchi, Wheezes, Respiratory Distress - Cardiovascular Exam Cardiovascular Exam: REGULAR RHYTHM, +S1, +S2 - GI/Abdominal Exam GI & Abdominal Exam: Normal Bowel Sounds, Soft, Tenderness (epigastric, with deep palpation). absent: Distended, Firm - Extremities Exam Extremities exam: normal inspection - Neurological Exam Neurological exam: Alert, Oriented x3 - Psychiatric Exam Psychiatric exam: Normal Affect, Normal Mood - Skin Skin Exam: Dry, Intact, Normal Color, Warm Discharge Plan - Discharge Medications Prescriptions: Ciprofloxacin [Cipro] 500 mg PO BID 5 Days tab Metronidazole [Flagyl] 500 mg PO TID 5 Days tablet - Follow Up Plan Condition: GOOD Disposition: HOME/ ROUTINE Instructions: How to Stop Smoking (DC), Pancreatitis (DC) Additional Instructions: Patient is stable for discharge to home. Patient must continue taking two antibiotics as prescribed. Ciprofloxacin 500mg PO BID- take 1 tablet twice a day by mouth for 5 days. Flagyl 500mg PO TID- take 1 tablet three times a day by mouth for 5 days. Patient must follow up with their PMD, Dr. Raphael, within one week of discharge. If symptoms reoccur or worsen, patient should return to the ED. <Kristina Goldman V - Last Filed: 11/08/17 20:58> Provider - Provider Date of Admission: 11/06/17 23:21 Attending physician: Kristina Goldman, DO Hospital Course - Lab Results Lab Results: Most Recent Lab Values WBC 4.0 K/uL (4.8-10.8) L 11/08/17 09:05 RBC 5.24 Mil/uL (4.40-5.90) 11/08/17 09:05 Hgb 14.1 g/dL (12.0-18.0) 11/08/17 09:05 Hct 43.3 % (35.0-51.0) 11/08/17 09:05 MCV 82.5 fL (80.0-94.0) 11/08/17 09:05 MCH 26.9 pg (27.0-31.0) L 11/08/17 09:05 MCHC 32.6 g/dL (33.0-37.0) L 11/08/17 09:05 RDW 13.6 % (11.5-14.5) 11/08/17 09:05 Plt Count 140 K/uL (130-400) 11/08/17 09:05 MPV 10.1 fL (7.2-11.7) 11/08/17 09:05 Neut % (Auto) 46.7 % (50.0-75.0) L 11/08/17 09:05 Lymph % (Auto) 37.4 % (20.0-40.0) 11/08/17 09:05 [place] % (Auto) 11.3 % (0.0-10.0) H 11/08/17 09:05 Eos % (Auto) 3.8 % (0.0-4.0) 11/08/17 09:05 Baso % (Auto) 0.8 % (0.0-2.0) 11/08/17 09:05 Neut # 1.9 K/uL (1.8-7.0) 11/08/17 09:05 Lymph # 1.5 K/uL (1.0-4.3) 11/08/17 09:05 [place] # 0.5 K/uL (0.0-0.8) 11/08/17 09:05 Eos # 0.2 K/uL (0.0-0.7) 11/08/17 09:05 Baso # 0.0 K/uL (0.0-0.2) 11/08/17 09:05 Sodium 136 mmol/L (132-148) 11/08/17 09:05 Potassium 3.9 mmol/L (3.6-5.2) 11/08/17 09:05 Chloride 102 mmol/L (98-107) 11/08/17 09:05 Carbon Dioxide 26 mmol/L (22-30) 11/08/17 09:05 Anion Gap 12 (10-20) 11/08/17 09:05 BUN 7 mg/dL (9-20) L 11/08/17 09:05 Creatinine 1.1 mg/dL (0.8-1.5) 11/08/17 09:05 Est GFR ( Amer) > 60 11/08/17 09:05 Est GFR (Non-Af Amer) > 60 11/08/17 09:05 POC Glucose (mg/dL) 117 mg/dL (65-110) H 11/08/17 11:24 Random Glucose 101 mg/dL (75-110) 11/08/17 09:05 Hemoglobin A1c 5.9 % (4.2-6.5) 11/07/17 07:50 Calcium 8.0 mg/dl (8.6-10.4) L 11/08/17 09:05 Phosphorus 2.8 mg/dL (2.5-4.5) 11/08/17 09:05 Magnesium 1.6 mg/dL (1.6-2.3) 11/08/17 09:05 Total Bilirubin 0.4 mg/dL (0.2-1.3) 11/08/17 09:05 AST 25 U/L (17-59) 11/08/17 09:05 ALT 34 U/L (21-72) 11/08/17 09:05 Alkaline Phosphatase 65 U/L (38-126) 11/08/17 09:05 Total Protein 6.7 g/dL (6.3-8.3) 11/08/17 09:05 Albumin 3.3 g/dL (3.5-5.0) L 11/08/17 09:05 Globulin 3.4 gm/dL (2.2-3.9) 11/08/17 09:05 Albumin/Globulin Ratio 1.0 (1.0-2.1) 11/08/17 09:05 Triglycerides 78 mg/dL (0-149) 11/07/17 07:50 Cholesterol 108 mg/dL (0-199) 11/07/17 07:50 LDL Cholesterol Direct 61 mg/dL (0-129) 11/07/17 07:50 HDL Cholesterol 27 mg/dL (30-70) L 11/07/17 07:50 Lipase 491 U/L (23-300) H 11/06/17 20:26 Urine Color Yellow (YELLOW) 11/06/17 20:26 Urine Clarity Clear (Clear) 11/06/17 20:26 Urine pH 5.0 (5.0-8.0) 11/06/17 20:26 Ur Specific [place] 1.028 (1.003-1.030) 11/06/17 20:26 Urine Protein Negative mg/dL (NEGATIVE) 11/06/17 20:26 Urine Glucose (UA) Normal mg/dL (Normal) 11/06/17 20:26 Urine Ketones Negative mg/dL (NEGATIVE) 11/06/17 20:26 Urine Blood 1+ (NEGATIVE) H 11/06/17 20:26 Urine Nitrate Negative (NEGATIVE) 11/06/17 20:26 Urine Bilirubin Negative (NEGATIVE) 11/06/17 20:26 Urine Urobilinogen Normal mg/dL (0.2-1.0) 11/06/17 20:26 Ur Leukocyte Esterase Neg [place]/uL (Negative) 11/06/17 20:26 Urine WBC (Auto) < 1 /hpf (0-5) 11/06/17 20:26 Urine RBC (Auto) 11 /hpf (0-3) H 11/06/17 20:26 Ur Squamous Epith Cells < 1 /hpf (0-5) 11/06/17 20:26 Ur Random Amylase 3231 U/L (32-641) H 11/07/17 06:47 Stool Occult Blood Negative (NEGATIVE) 11/07/17 21:08 Alcohol, Quantitative < 10 mg/dl (0-10) 11/06/17 20:54 Influenza Typ A,B (EIA) Negative for flu a/b (NEGATIVE) 11/07/17 06:44 Attending/Attestation - Attestation I have personally seen and examined this patient.: Yes I have fully participated in the care of the patient.: Yes I have reviewed all pertinent clinical information, including history, physical exam and plan: Yes Notes (Text): Patient seen, examined, case discussed with medical assistant dermatology. Patient seen at bedside this morning. Patient reports his stool is more formed. Patient reports he has tolerated liquid diet. patient is eager to start regular diet. On physical exam, patient has soft, nontender, nondistended abdomen, bowel sounds are present, no guarding present. Patient appears well-hydrated. Patient has full understanding he should not drink alcohol which will lead to flare of pancreatitis. Discussed with medical assistant dermatology, patient to complete Flagyl 500mg PO TID and Ciprofloxacin 500mg PO BID for total 7 day therapy for colitis. Discharge medications: 1) Ciprofloxocin 500mg PO BID (10 tabs/0 refills) 2) Flagyl 500mg PO TID (15 tabs/0 refills) Alcohol cessation provided to prevent further acute episodes of pancreatitis. Patient tolerated diet on discharge. Patient refused influenza and pneumonia vaccinations offered by nursing staff upon discharge. This is a summary of patient's hospitalization. Please see EMR for further details. Assessment/Plan 1) Pancreatitis-->Stable Assesment & Plan: * Lipase 491, amylase 3231 * Josiah's Criteria: 0 * Tolerated liquid diet, advanced to regular diet * CT Abdomen and Pelvis with PO contrast only (11/06/17)- Pancreas appears full/ edematous without surrounding fluid/inflammatory changes. Correlate clinically to evaluate for/exclude acute pancreatitis. Evidence of nonobstructing right intrarenal calculus. Evaluation for calculi limited due to contrast. No obstructing calculus or hydronephrosis noted. * Abdominal US (11/07/17): echogenic liver may be seen in setting of hepatic parenchymal disease or fatty infiltration * Patient medically stable for discharge. Advised to refrain from alcohol even socially to prevent further acute flare of pancreatitis. Medications: * NS @ 150cc/hr * Morphine PRN, Zofran PRN 2) Gastroenteritis-Stable Assesment & Plan: * Fluid levels noted on CT abdomen and pelvis - indicative of diarrhea * Diarrhea has resolved. patient has formed stool today * occult blood negative * Started Cipro 400mg IV Q12h and Flagyl 500mg IV Q8h (11/07/17) * Patient to complete: 1) Ciprofloxocin 500mg PO BID (10 tabs/0 refills) and 2 ) Flagyl 500mg PO TID (15 tabs/0 refills) 3) History of Diabetes--Controlled Assesment & Plan: * HbA1C: 5.9 * Controlled * Continue to monitor, accuchecks QAC and HS 4) Hx Gastric Ulcer--Chronic Assesment & Plan: * Refrain from NSAIDs 5) Hx of Tobacco Use Disorder-Chronic Assesment & Plan: * Smoking Cessation encouraged * Nicotine patch 6) Prophylatic Measures * GI PPX: Protonix 40mg IVP daily * DVT PPX: SCDs, held VTE - due to reported blood in stool
== END 2017-11-08 14:38 | disposition home or self-care (01) | DRG 204 ==
LOC: C.ER 19:15 → C.9E 23:21 → C.5S 11-07 01:08
PROVIDERS: ADMIT Hospitalist; ATTEND Hospitalist
DX: K85.90 Acute pancreatitis without necrosis or infection, unspecified (principal); E11.9 Type 2 diabetes mellitus without complications; Z87.11 Personal history of peptic ulcer disease; F17.210 Nicotine dependence, cigarettes, uncomplicated; F12.90 Cannabis use, unspecified, uncomplicated; K52.9 Noninfective gastroenteritis and colitis, unspecified; F10.20 Alcohol dependence, uncomplicated

== ENCOUNTER 2018-06-13 15:20 | Emergency (ER) | payer OTHER ==
[2018-06-13 15:20] VITALS: BMI 29.2
[2018-06-13 16:00] VITALS: O2SAT 100
--- NOTE | 2018-06-13 16:42 | C.PDOC ---
History Of Present Illness CC: Dizziness and Headache Patient is a 38 year old male with past medical history of diabetes, who presents to the ED with complaint of gradual hearing loss, dizziness ( like the room is spinning or visualizing white spots) and disequilibrium, that has been going on for a whole while but his symptoms have increase in intensity. Patient admits to associated symptoms of headache. Patient states that he was seen by a neurologist approximately 2 years ago with negative work-up. However, patient states worsening symptoms that is interfering with his job. (Carmen Terrell) History Per: Patient History/Exam Limitations: no limitations Onset/Duration Of Symptoms: Hrs Current Symptoms Are (Timing): Still Present Severity: Moderate Pain Scale Rating Of: 4 Time Seen by Provider: 06/13/18 15:51 Chief Complaint (Nursing): ENT Problem Past Medical History - Medical History PMH: Diabetes, Gastrointestinal Ulcer, Pancreatitis Other Surgeries: Thoracentesis Family History: States: Diabetes, Hypertension, Other Other Family History: HLD - Social History Hx Tobacco Use: Yes (5-6 cigarettes > 20 years old ) Hx Alcohol Use: Yes Hx Substance Use: Yes - Immunization History Hx Tetanus Toxoid Vaccination: No Hx Influenza Vaccination: No Hx Pneumococcal Vaccination: No Vital Signs: Last Vital Signs Temp 98.4 F 06/13/18 17:26 Pulse 47 L 06/13/18 17:26 Resp 18 06/13/18 17:26 BP 108/67 06/13/18 17:26 Pulse Ox 100 06/13/18 18:59 Review Of Systems Constitutional: Negative for: Fever, Chills, Weakness, Malaise Eyes: Negative for: Pain, Vision Change ENT: Negative for: Ear Pain, Ear Discharge, Nose Pain, Nose Congestion, Mouth Pain, Mouth Swelling Cardiovascular: Positive for: Light Headedness. Negative for: Chest Pain, Palpitations, Edema Respiratory: Negative for: Cough, Shortness of Breath, SOB with Excertion, Pleuritic Pain, Wheezing Gastrointestinal: Negative for: Nausea, Vomiting Genitourinary: Negative for: Dysuria, Frequency, Rash Musculoskeletal: Negative for: Neck Pain, Shoulder Pain, Back Pain, Hand Pain, Leg Pain, Foot Pain Skin: Negative for: Rash Neurological: Positive for: Incoordination, Headache, Dizziness. Negative for: Weakness, Numbness, Confusion, Seizures, Altered Mental Status Physical Exam - Physical Exam Appears: Well Skin: Normal Color, Warm Head: Atraumatic, Normacephalic Eye(s): bilateral: Normal Inspection, PERRL, EOMI Ear(s): Right: Other (Ear waxing obscuring the tympanic membrane ) Nose: Normal Oral Mucosa: Moist, No Drooling Tongue: Normal Appearing, No Swelling, No Laceration, No Bleeding Lips: Normal Appearing Teeth: Normal Dentition Throat: Normal Neck: Normal ROM Chest: Symmetrical Cardiovascular: Rhythm Regular Respiratory: Normal Breath Sounds Gastrointestinal/Abdominal: Normal Exam, Bowel Sounds, Soft, No Tenderness, No Organomegaly, No Mass Extremity: Normal ROM, No Tenderness, No Pedal Edema Extremity: Bilateral: Atraumatic Neurological/Psych: Oriented x3, Normal Speech, Normal Cranial Nerves, Normal Sensation, Other (Positive [place]- Hallpike manuever ) ED Course And Treatment ECG Rhythm: Sinus Bradycardia ECG Interpretation: Normal Rate From EC O2 Sat by Pulse Oximetry: 100 Medical Decision Making Medical Decision Making: HEAD CT without contrast: Normal CT of the Head. No intracranial mass, hemorrhage or evidence of acute infarct. Please note that there is chronic pansinusitis. (Carmen Terrell) patient with pansinusitis, medications for home and advised to follow up with ent within 2 days (Festus Woodard) Disposition Discussed With Dr.: Festus Woodard - Disposition Disposition Time: 18:47 - Disposition Referrals: Nikos Forman MD [Staff Provider] - [facility] [Outside] Disposition: HOME/ ROUTINE Condition: STABLE Additional Instructions: Please discharge patient home Please take the following medications: -Sudafed 30mg PO Q6H PRN - Amoxicillin 875mg PO every 12 hours for 10 days. Please take with probiotic or yogurt. Please follow up with [facility] to establish primary care, Please follow up with ENT specialist, Dr. Forman Please continue to hydrate Please return if symptoms worsens Please take care Prescriptions: Amoxicillin 875 mg PO Q12H 10 Days #20 tablet Pseudoephedrine [Sudafed Tab] 30 mg PO Q6H PRN #20 tab PRN Reason: Cough And Congestion Instructions: Sinusitis, Adult (DC) Forms: [employer] (Peruvian), Work Note - Clinical Impression Clinical Impression: Chronic pansinusitis
[2018-06-13 17:27] VITALS: BP 108/67; PULSE 47; RESP 18; TEMP 98.4
--- NOTE | 2018-06-13 17:37 | CT ---
Date of service: 06/13/2018 PROCEDURE: CT HEAD WITHOUT CONTRAST. HISTORY: Dizziness, decrease hearing COMPARISON: None available. TECHNIQUE: Axial computed tomography images were obtained through the head/brain without intravenous contrast. Radiation dose: Total exam DLP = mGy-cm. This CT exam was performed using one or more of the following dose reduction techniques: Automated exposure control, adjustment of the mA and/or kV according to patient size, and/or use of iterative reconstruction technique. FINDINGS: HEMORRHAGE: No intracranial hemorrhage. BRAIN: No mass effect or edema. No atrophy or chronic microvascular ischemic changes. VENTRICLES: Unremarkable. No hydrocephalus. CALVARIUM: Unremarkable. PARANASAL SINUSES: Unremarkable as visualized. No significant inflammatory changes. MASTOID AIR CELLS: Unremarkable as visualized. No inflammatory changes. OTHER FINDINGS: None. IMPRESSION: Normal CT of the Head. No intracranial mass, hemorrhage or evidence of acute infarct.
--- NOTE | 2018-06-14 23:35 | CARD ---
APPROVED REPORT Date of service: 06/13/2018 EKG Measurement Heart [id number] <Conclusion> Sinus bradycardia Otherwise normal ECG
== END 2018-06-13 19:27 | disposition home or self-care (01) ==
LOC: C.ER 15:20
DX: J32.4 Chronic pansinusitis (principal); E11.9 Type 2 diabetes mellitus without complications; F17.210 Nicotine dependence, cigarettes, uncomplicated

== ENCOUNTER 2019-01-16 09:44 | Emergency (ER) | payer MEDICAID, OTHER ==
[2019-01-16 09:44] VITALS: BMI 29.2
[2019-01-16 10:11] VITALS: RESP 18
[2019-01-16] MEDS ORDERED: Iohexol 240 (50 ml) PO STA (10:59)
[2019-01-16] MEDS ORDERED: Aluminum Hydroxide/Magnesium Hydroxide Susp (30 mL) PO STA (11:00)
--- NOTE | 2019-01-16 11:02 | C.PDOC ---
History Of Present Illness INTERMIT VERTIGO-LIKE DIZZY, OFF BALANCE X 2 WEEKS. TODAY ONSET WHILE RUNNING ON [employer]. NO LOC. NO FOCAL WEAKNESS. DENIES RECENT URI ALSO CO EXAC EPIG PAIN X 2-3 WEEKS. PREV DX GASTRITIS, TAKING OTC HERBAL MEDS. ?ASSOC W EATING. BURNING OCC RADIATION CHEST. NO NV. ALSO CO R INGUINAL PAIN EXAC X SEV DAYS. NO MASS. OCC RADIATION R TESTICLE. NO TEST SWELLING EXAM NAD HEENT NO NYSTAGMUS ABD NEG +R INGUINAL AREA TEND DIFFUSE NO FOCAL MASS OR PALP HERNIA NEURO NO FOCAL DEF GAIT WNL REMAINDER NEG <Raquel Hobbs - Last Filed: 01/16/19 12:57> History Per: Patient History/Exam Limitations: no limitations Onset/Duration Of Symptoms: Days Current Symptoms Are (Timing): Still Present Severity: Moderate <Raquel Hobbs - Last Filed: 01/16/19 12:57> <Lorraine Pitts - Last Filed: 01/16/19 14:37> Time Seen by Provider: 01/16/19 10:47 Chief Complaint (Nursing): Dizziness/Lightheaded Past Medical History Reviewed: Historical Data, Nursing Documentation, Vital Signs Vital Signs: Last Vital Signs Temp 98.1 F 01/16/19 10:06 Pulse 72 01/16/19 10:06 Resp 18 01/16/19 10:06 BP 112/77 01/16/19 10:06 Pulse Ox 99 01/16/19 10:06 - Medical History PMH: Diabetes, Gastrointestinal Ulcer, HTN, Hypercholesterolemia, Pancreatitis Surgical History: Tonsillectomy Family History: States: Diabetes, Hypertension - Social History Hx Tobacco Use: Yes (5-6 cigarettes > 18 years old ) Hx Alcohol Use: Yes Hx Substance Use: Yes - Immunization History Hx Tetanus Toxoid Vaccination: No Hx Influenza Vaccination: No Hx Pneumococcal Vaccination: No <Raquel Hobbs - Last Filed: 01/16/19 12:57> Vital Signs: Last Vital Signs Temp 98.1 F 01/16/19 10:06 Pulse 47 L 01/16/19 13:46 Resp 18 01/16/19 13:46 BP 120/71 01/16/19 13:46 Pulse Ox 99 01/16/19 13:46 <Lorraine Pitts - Last Filed: 01/16/19 14:37> Review Of Systems Except As Marked, All Systems Reviewed And Found Negative. Constitutional: Negative for: Fever, Chills Gastrointestinal: Positive for: Abdominal Pain. Negative for: Nausea, Vomiting Genitourinary: Positive for: Other (right inguinal pain ) Neurological: Positive for: Dizziness. Negative for: Weakness, Numbness <Raquel Hobbs - Last Filed: 01/16/19 12:57> Physical Exam - Physical Exam Appears: No Acute Distress Skin: Normal Color, Warm, Dry Head: Atraumatic, Normacephalic Eye(s): bilateral: Normal Inspection, Other (no nystagmus) Gastrointestinal/Abdominal: Normal Exam, Soft, No Tenderness, No Guarding, No Rebound Male Genital: Inguinal Tenderness (diffuse tenderness to right inguinal area, no focal mass or hernia), Other Neurological/Psych: Oriented x3, Normal Speech, Other (no focal deficits) Gait: Steady <Raquel Hobbs - Last Filed: 01/16/19 12:57> ED Course And Treatment - Laboratory Results Result Diagrams: 01/16/19 11:12 01/16/19 11:12 ECG: Interpreted By Hi ECG Rhythm: Sinus Rhythm ECG Interpretation: Normal Rate From EC O2 Sat by Pulse Oximetry: 99 (RA) Pulse Ox Interpretation: Normal <Raquel Hobbs - Last Filed: 01/16/19 12:57> - Laboratory Results Result Diagrams: 01/16/19 11:12 01/16/19 11:12 Lab Results: Total Bilirubin 0.5 mg/dL (0.2-1.3) 01/16/19 11:12 AST 46 U/L (17-59) 01/16/19 11:12 ALT 37 U/L (21-72) 01/16/19 11:12 Alkaline Phosphatase 89 U/L (38-126) 01/16/19 11:12 Total Protein 7.0 g/dL (6.3-8.3) 01/16/19 11:12 Albumin 4.3 g/dL (3.5-5.0) 01/16/19 11:12 Globulin 2.8 gm/dL (2.2-3.9) 01/16/19 11:12 Albumin/Globulin Ratio 1.5 (1.0-2.1) 01/16/19 11:12 Lipase 216 U/L (23-300) 01/16/19 11:12 - CT Scan/US CT ABD/PELVIS Other Rad Studies (CT/US): Read By Radiologist, Radiology Report Reviewed CT/US Interpretation: Accession No. : [id number]. Patient Name / ID : RAOUL BUCK / [id number]. Exam Date : 01/16/2019 12:25:11 ( Approved ). Study Comment : Sex / Age : M / 38Y. Creator : [place]. Dictator : Katherine Nails MD. Correctional Supervisor Lieutenant : Chair Maker : Katherine Nails MD. Approver2 : Report Date : 01/16/2019 13:35:48. My Comment : . PROCEDURE: CT Abdomen and Pelvis with oral and IV contrast. HISTORY: abd pain R INGUINAL RO INCARC HERNIA. COMPARISON: Abdominal ultrasound performed 11/07/17, CT of the abdomen pelvis with contrast performed 11/06/17. TECHNIQUE: Contiguous axial images of the abdomen and pelvis. Oral and IV contrast was administered. Coronal and Sagittal reformats generated and reviewed. Contrast dose: 100 mL Visipaque 320 IV. Radiation dose: Total exam DLP = 529.13 mGy-cm. This CT exam was performed using one or more of the following dose reduction techniques: Automated exposure control, adjustment of the mA and/or kV according to patient size, and/or use of iterative reconstruction technique. FINDINGS: LOWER THORAX: Subsegmental atelectasis, left lung base. No visible pleural effusion or pneumothorax. Small hiatal hernia/distal esophageal wall thickening. LIVER: Hypoattenuation of the liver compatible with hepatic steatosis. GALLBLADDER AND BILE DUCTS: Unremarkable. PANCREAS: Unremarkable. SPLEEN: 9 mm probable splenule. Otherwise unremarkable. ADRENALS: Unremarkable. KIDNEYS AND URETERS: The kidneys enhance symmetrically. No hydronephrosis or obstructing renal calculus. BLADDER: The urinary bladder appears unremarkable. REPRODUCTIVE: The prostate gland measures approximately. APPENDIX: The appe ndix appears within normal limits of caliber. No secondary signs of acute appendicitis. BOWEL: The stomach is nondistended. The bowel loops appear within normal limits of caliber without evidence of intestinal obstruction. Nonspecific colonic wall thickening at the level of the hepatic flexure; correlate clinically for possibility of colitis however appearance may be exaggerated by under distension. PERITONEUM: No significant free fluid. No definite free air. LYMPH NODES: Sub cm mesenteric, retroperitoneal, and bilateral inguinal lymph nodes, nonspecific. VASCULATURE: No aortic aneurysm. No atherosclerotic calcification or mural plaque present. BONES: No acute osseous abnormality is detected. OTHER FINDINGS: Small bilateral fat and vessel containing inguinal hernia. Tiny fat containing umbilical hernia. IMPRESSION: Small bilateral fat and vessel containing inguinal hernia. Tiny fat containing umbilical hernia. Nonspecific colonic wall thickening at the level of the hepatic flexure; correlate clinically for possibility of colitis however appearance may be exaggerated by under distension. Hypoattenuation of the liver compatible with hepatic steatosis. Sub cm mesenteric, retroperitoneal, bilateral inguinal lymph nodes, nonspecific. Subsegmental atelectasis, left lung base. Small hiatal hernia/distal esophageal wall thickening. Additional findings as above. CT HEAD Other Rad Studies (CT/US): Read By Radiologist, Radiology Report Reviewed CT/US Interpretation: Accession No. : [id number]. Patient Name / ID : RAOUL BUCK / [id number]. Exam Date : 01/16/2019 12:21:13 ( Approved ). Study Comment : Sex / Age : M / 38Y. Creator : [place] Loya. Dictator : Katherine Nails MD. Correctional Supervisor Lieutenant : Chair Maker : Katherine Nails MD. Approver2 : Report Date : 01/16/2019 12:34:07. My Comment : . Date of service: 01/16/2019. PROCEDURE: CT HEAD WITHOUT CONTRAST. HISTORY: VERTIGO. COMPARISON: Noncontrast head CT performed 06/13/18. TECHNIQUE: Axial computed tomography images were obtained through the head/brain without intravenous contrast. Radiation dose: Total exam DLP = 1062.6 mGy-cm. This CT exam was performed using one or more of the following dose reduction techniques: Automated exposure control, adjustment of the mA and/or kV according to patient size, and/or use of iterative reconstruction technique. FINDINGS: HEMORRHAGE: No intracranial hemorrhage. BRAIN: No mass effect or edema. The fischer-white matter differentiation appears intact. VENTRICLES: No hydrocephalus. CALVARIUM: Unremarkable. PARANASAL SINUSES: Mucosal thickening of the ethmoid air cells and sphenoid sinuses. MASTOID AIR CELLS: Unremarkable as visualized. No inflammatory changes. OTHER FINDINGS: None. IMPRESSION: No acute intracranial pathology identified. <Lorraine Pitts - Last Filed: 01/16/19 14:37> Medical Decision Making Medical Decision Making: Plan: --Labs --CT-Head --CT- Abd & Pelv. --US -Testicular --Meclizine PO --Maalox PO --Morphine IV --Pepcid IV --Protonix IV <Raquel Hobbs - Last Filed: 01/16/19 12:57> Disposition Counseled Patient/Family Regarding: Studies Performed, Diagnosis - Disposition Disposition Time: 13:00 <AnjelRaquel - Last Filed: 01/16/19 12:57> Counseled Patient/Family Regarding: Studies Performed, Diagnosis, Need For Followup, Rx Given - Disposition Disposition Time: 14:30 <Lorraine Pitts - Last Filed: 01/16/19 14:37> - Disposition Referrals: Moreno Martell MD [Staff Provider] - Delfino Montaño MD [Staff Provider] - Russ Raphael MD [Staff Provider] - Disposition: HOME/ ROUTINE Condition: STABLE Additional Instructions: FOLLOW UP WITH YOUR DOCTOR IN 1-2 DAYS FOLLOW UP WITH GENERAL SURGEON WITHIN 1 WEEK AND WITH GI WITHIN 1 WEEK USE MEDICATIONS DIRECTED RETURN TO ER IF SYMPTOMS WORSEN Prescriptions: Pantoprazole [Protonix EC Tab] 20 mg PO DAILY #30 ect traMADol [Ultram] 50 mg PO BID PRN #12 tab PRN Reason: pain Instructions: Vertigo (a Type of Dizziness), Groin Hernia (DC), Dyspepsia (DC) Forms: [employer] (Libyan) Print Language: BULGARIAN - Clinical Impression Clinical Impression: Inguinal pain, Epigastric pain, Peripheral vertigo - Scribe Statement The provider has reviewed the documentation as recorded by the Janny Lazcano Provider Attestation: All medical record entries made by the Janny were at my direction and personally dictated by me. I have reviewed the chart and agree that the record accurately reflects my personal performance of the history, physical exam, medical decision making, and the department course for this patient. I have also personally directed, reviewed, and agree with the discharge instructions and disposition. <Raquel Hobbs - Last Filed: 01/16/19 12:57> Physician Patient Turnover Patient Signed Over To: Lorraine Pitts Handoff Comments: PHILOMENA TENA, YVETTEO <Raquel Hobbs - Last Filed: 01/16/19 12:57>
[2019-01-16] MEDS ORDERED: Iohexol 240 (50 ml) ONE (11:14)
[2019-01-16] MEDS ORDERED: Aluminum Hydroxide/Magnesium Hydroxide Susp (30 mL) ONE (11:15)
[2019-01-16 11:18] LABS: BASO % 0.8 % (0.0-2.0); EOS # 0.2 K/uL (0.0-0.7); EOS % 3.3 % (0.0-4.0); HEMOGLOBIN 13.8 g/dL (12.0-18.0); LYMPH # 1.8 K/uL (1.0-4.3); LYMPH % 32.7 % (20.0-40.0); MEAN CORPUSCULAR HEMOGLOBIN 27.6 pg (27.0-31.0); MEAN CORPUSCULAR HGB CONC 32.9 g/dL (33.0-37.0); MONO # 0.5 K/uL (0.0-0.8); MONO % 8.8 % (0.0-10.0); NEUT % 54.4 % (50.0-75.0); NRBC % 0.2 % (0.0-2.0); RBC 5.01 Mil/uL (4.40-5.90); RED CELL DISTRIBUTION WIDTH 14.5 % (11.5-14.5); WHITE BLOOD COUNT 5.5 K/uL (4.8-10.8)
[2019-01-16 11:31] LABS: ALB/GLOB RATIO 1.5 (1.0-2.1); ALBUMIN 4.3 g/dL (3.5-5.0); ALT/SGPT 37 U/L (21-72); AST/SGOT 46 U/L (17-59); BLOOD UREA NITROGEN 17 mg/dL (9-20); CALCIUM 9.5 mg/dl (8.6-10.4); GFR NON-AFRICAN AMERICAN > 60; LIPASE 216 U/L (23-300)
[2019-01-16] MEDS ORDERED: Iohexol 300 100 ML IJ ONE (12:12)
--- NOTE | 2019-01-16 12:43 | CT ---
Date of service: 01/16/2019 PROCEDURE: CT HEAD WITHOUT CONTRAST. HISTORY: VERTIGO COMPARISON: Noncontrast head CT performed 06/13/18 TECHNIQUE: Axial computed tomography images were obtained through the head/brain without intravenous contrast. Radiation dose: Total exam DLP = 1062.6 mGy-cm. This CT exam was performed using one or more of the following dose reduction techniques: Automated exposure control, adjustment of the mA and/or kV according to patient size, and/or use of iterative reconstruction technique. FINDINGS: HEMORRHAGE: No intracranial hemorrhage. BRAIN: No mass effect or edema. The fischer-white matter differentiation appears intact. VENTRICLES: No hydrocephalus. CALVARIUM: Unremarkable. PARANASAL SINUSES: Mucosal thickening of the ethmoid air cells and sphenoid sinuses. MASTOID AIR CELLS: Unremarkable as visualized. No inflammatory changes. OTHER FINDINGS: None. IMPRESSION: No acute intracranial pathology identified.
--- NOTE | 2019-01-16 14:03 | CT ---
PROCEDURE: CT Abdomen and Pelvis with oral and IV contrast. HISTORY: abd pain R INGUINAL RO INCARC HERNIA COMPARISON: Abdominal ultrasound performed 11/07/17, CT of the abdomen pelvis with contrast performed 11/06/17 TECHNIQUE: Contiguous axial images of the abdomen and pelvis. Oral and IV contrast was administered. Coronal and Sagittal reformats generated and reviewed. Contrast dose: 100 mL Visipaque 320 IV Radiation dose: Total exam DLP = 529.13 mGy-cm. This CT exam was performed using one or more of the following dose reduction techniques: Automated exposure control, adjustment of the mA and/or kV according to patient size, and/or use of iterative reconstruction technique. FINDINGS: LOWER THORAX: Subsegmental atelectasis, left lung base. No visible pleural effusion or pneumothorax. Small hiatal hernia/distal esophageal wall thickening. LIVER: Hypoattenuation of the liver compatible with hepatic steatosis. GALLBLADDER AND BILE DUCTS: Unremarkable. PANCREAS: Unremarkable. SPLEEN: 9 mm probable splenule. Otherwise unremarkable. ADRENALS: Unremarkable. KIDNEYS AND URETERS: The kidneys enhance symmetrically. No hydronephrosis or obstructing renal calculus. BLADDER: The urinary bladder appears unremarkable. REPRODUCTIVE: The prostate gland measures approximately APPENDIX: The appendix appears within normal limits of caliber. No secondary signs of acute appendicitis. BOWEL: The stomach is nondistended. The bowel loops appear within normal limits of caliber without evidence of intestinal obstruction. Nonspecific colonic wall thickening at the level of the hepatic flexure; correlate clinically for possibility of colitis however appearance may be exaggerated by under distension. PERITONEUM: No significant free fluid. No definite free air. LYMPH NODES: Sub cm mesenteric, retroperitoneal, and bilateral inguinal lymph nodes, nonspecific. VASCULATURE: No aortic aneurysm. No atherosclerotic calcification or mural plaque present. BONES: No acute osseous abnormality is detected. OTHER FINDINGS: Small bilateral fat and vessel containing inguinal hernia. Tiny fat containing umbilical hernia. IMPRESSION: Small bilateral fat and vessel containing inguinal hernia. Tiny fat containing umbilical hernia. Nonspecific colonic wall thickening at the level of the hepatic flexure; correlate clinically for possibility of colitis however appearance may be exaggerated by under distension. Hypoattenuation of the liver compatible with hepatic steatosis. Sub cm mesenteric, retroperitoneal, bilateral inguinal lymph nodes, nonspecific. Subsegmental atelectasis, left lung base. Small hiatal hernia/distal esophageal wall thickening. Additional findings as above.
--- NOTE | 2019-01-16 14:22 | US ---
Date of service: 01/16/2019 HISTORY: scrotal pain R TECHNIQUE: Realtime sonography through the scrotum with color and doppler flow. COMPARISON: None Available. FINDINGS: RIGHT TESTICLE: Measures 4.7 x 2.7 x 3.2 cm. Homogeneous echotexture. Blood flow is demonstrated. RIGHT EPIDIDYMIS: Unremarkable. LEFT TESTICLE: Measures 3.8 x 2.4 x 3.2 cm. Homogeneous echotexture. Blood flow is demonstrated. LEFT EPIDIDYMIS: Unremarkable. HYDROCELE: Small right hydrocele. VARICOCELE: None. OTHER FINDINGS: None. IMPRESSION: Small right hydrocele.
[2019-01-16 15:18] VITALS: BP 119/77; PULSE 56; TEMP 98.8; O2SAT 100
--- NOTE | 2019-01-17 18:19 | CARD ---
APPROVED REPORT Date of service: 01/16/2019 EKG Measurement Heart [id number] IN [id number] <Conclusion> Normal sinus rhythm Normal ECG
== END 2019-01-16 15:19 | disposition home or self-care (01) ==
LOC: C.ER 09:44
DX: H81.399 Other peripheral vertigo, unspecified ear (principal); R10.13 Epigastric pain; R10.31 Right lower quadrant pain; I10 Essential (primary) hypertension; E11.9 Type 2 diabetes mellitus without complications; E78.00 Pure hypercholesterolemia, unspecified; F17.210 Nicotine dependence, cigarettes, uncomplicated
CPT/HCPCS: 70450; 74177; 76870; 80053; 82948; 83690; 85025; 93005; 96374; 96375; 99285; C9113; J1885; J2270; Q9966; Q9967

== ENCOUNTER 2019-01-19 19:26 | Emergency (ER) | payer MEDICAID ==
[2019-01-19 19:27] VITALS: BMI 29.2
[2019-01-19 19:45] VITALS: O2SAT 98
--- NOTE | 2019-01-19 19:51 | C.PDOC ---
Time Seen by Provider: 01/19/19 19:50 Chief Complaint (Nursing): Abdominal Pain Past Medical History Vital Signs: Last Vital Signs Temp 98.3 F 01/19/19 19:41 Pulse 59 L 01/19/19 19:41 Resp 16 01/19/19 19:41 BP 134/81 01/19/19 19:41 Pulse Ox 98 01/19/19 19:41 - Medical History PMH: Diabetes, Gastrointestinal Ulcer, HTN, Hypercholesterolemia, Pancreatitis Surgical History: Tonsillectomy Family History: States: Unknown Family Hx, Diabetes, Hypertension - Social History Hx Tobacco Use: Yes (5-6 cigarettes > 20 years old ) Hx Alcohol Use: Yes Hx Substance Use: Yes - Immunization History Hx Tetanus Toxoid Vaccination: No Hx Influenza Vaccination: No Hx Pneumococcal Vaccination: No ED Course And Treatment O2 Sat by Pulse Oximetry: 98 Disposition - Disposition
[2019-01-19 20:31] LABS: BASO # 0.1 K/uL (0.0-0.2); BASO % 0.8 % (0.0-2.0); EOS # 0.2 K/uL (0.0-0.7); EOS % 3.3 % (0.0-4.0); HEMOGLOBIN 13.9 g/dL (12.0-18.0); LYMPH # 2.6 K/uL (1.0-4.3); LYMPH % 36.4 % (20.0-40.0); MEAN CORPUSCULAR HEMOGLOBIN 27.3 pg (27.0-31.0); MEAN CORPUSCULAR HGB CONC 32.5 g/dL (33.0-37.0); MEAN PLATELET VOLUME 9.8 fL (7.2-11.7); MONO # 0.7 K/uL (0.0-0.8); MONO % 9.3 % (0.0-10.0); NEUT # 3.5 K/uL (1.8-7.0); NEUT % 50.2 % (50.0-75.0); NRBC % 0.1 % (0.0-2.0); RBC 5.11 Mil/uL (4.40-5.90); RED CELL DISTRIBUTION WIDTH 14.4 % (11.5-14.5)
[2019-01-19 20:50] LABS: SQUAMOUS EPITHIAL < 1 /hpf (0-5); URINE BILIRUBIN NEGATIVE (NEGATIVE); URINE BLOOD NEGATIVE (NEGATIVE); URINE CLARITY Clear (Clear); URINE COLOR Yellow (YELLOW); URINE GLUCOSE (UA) NORMAL (Normal); URINE LEUKOCYTE ESTERASE NEG Leu/uL (Negative); URINE PROTEIN NEGATIVE (NEGATIVE); URINE UROBILINOGEN NORMAL mg/dL (0.2-1.0)
[2019-01-19 21:03] LABS: ALB/GLOB RATIO 1.6 (1.0-2.1); ALBUMIN 4.3 g/dL (3.5-5.0); ALT/SGPT 31 U/L (21-72); AST/SGOT 42 U/L (17-59); BLOOD UREA NITROGEN 21 mg/dL (9-20); CALCIUM 9.2 mg/dl (8.6-10.4); GFR NON-AFRICAN AMERICAN 56
[2019-01-19] MEDS ORDERED: Iohexol 350mg/ml 100 ML ONE (21:18)
--- NOTE | 2019-01-19 21:41 | C.PDOC ---
History Of Present Illness 38 y/o male pt presents to the ER c/o increased b/l inguinal hernia pain. Pt was seen here x2 days ago for same sx and CAT scan showed inguinal hernia that was reducible. Pt noticed that after his workout he developed more pain which prompted him to visit the ER. Pt denies any urinary sx, burning when urinating, penile discharge or testicle pain. Time Seen by Provider: 01/19/19 19:50 Chief Complaint (Nursing): Abdominal Pain History Per: Patient History/Exam Limitations: no limitations Onset/Duration Of Symptoms: Days Current Symptoms Are (Timing): Still Present Past Medical History Reviewed: Historical Data, Nursing Documentation, Vital Signs Vital Signs: Last Vital Signs Temp 98.3 F 01/19/19 19:41 Pulse 59 L 01/19/19 19:41 Resp 16 01/19/19 19:41 BP 134/81 01/19/19 19:41 Pulse Ox 98 01/19/19 19:41 - Medical History PMH: Diabetes, Gastrointestinal Ulcer, HTN, Hypercholesterolemia, Pancreatitis Surgical History: Tonsillectomy Family History: States: Unknown Family Hx, Diabetes, Hypertension - Social History Hx Tobacco Use: Yes (5-6 cigarettes > 20 years old ) Hx Alcohol Use: Yes Hx Substance Use: Yes - Immunization History Hx Tetanus Toxoid Vaccination: No Hx Influenza Vaccination: No Hx Pneumococcal Vaccination: No Review Of Systems Except As Marked, All Systems Reviewed And Found Negative. Genitourinary: Positive for: Other (inguinal pain ) Physical Exam - Physical Exam Appears: Well, Non-toxic, No Acute Distress Skin: Normal Color, Warm, Dry Head: Atraumatic, Normacephalic Eye(s): bilateral: Normal Inspection, PERRL, EOMI Nose: Normal Oral Mucosa: Moist Chest: Symmetrical Cardiovascular: Rhythm Regular, No Murmur Respiratory: Normal Breath Sounds, No Rales, No Rhonchi, No Wheezing Gastrointestinal/Abdominal: Normal Exam, Soft, No Tenderness, No Distention Male Genital: Normal Inspection, No Testicular Tenderness, No Testicular Swelling, Other (reducible small inguinal hernia) Extremity: Normal ROM Extremity: Bilateral: Atraumatic, Normal Color And Temperature Neurological/Psych: Oriented x3, Normal Speech ED Course And Treatment - Laboratory Results Result Diagrams: 01/19/19 20:27 01/19/19 20:27 Lab Results: Total Bilirubin 0.5 mg/dL (0.2-1.3) 01/19/19 20:27 AST 42 U/L (17-59) 01/19/19 20:27 ALT 31 U/L (21-72) 01/19/19 20:27 Alkaline Phosphatase 122 U/L (38-126) 01/19/19 20:27 Total Protein 7.0 g/dL (6.3-8.3) 01/19/19 20: Albumin 4.3 g/dL (3.5-5.0) 01/19/19 20: Globulin 2.7 gm/dL (2.2-3.9) 01/19/19 20: Albumin/Globulin Ratio 1.6 (1.0-2.1) 01/19/19 20:27 Urine Color Yellow (YELLOW) 01/19/19 20:27 Urine Clarity Clear (Clear) 01/19/19 20:27 Urine pH 6.0 (5.0-8.0) 01/19/19 20:27 Ur Specific [place] 1.019 (1.003-1.030) 01/19/19 20:27 Urine Protein Negative mg/dL (NEGATIVE) 01/19/19 20:27 Urine Glucose (UA) Normal mg/dL (Normal) 01/19/19 20:27 Urine Ketones Negative mg/dL (NEGATIVE) 01/19/19 20:27 Urine Blood Negative (NEGATIVE) 01/19/19 20:27 Urine Nitrate Negative (NEGATIVE) 01/19/19 20:27 Urine Bilirubin Negative (NEGATIVE) 01/19/19 20:27 Urine Urobilinogen Normal mg/dL (0.2-1.0) 01/19/19 20:27 Ur Leukocyte Esterase Neg Malorie/uL (Negative) 01/19/19 20:27 Urine WBC (Auto) < 1 /hpf (0-5) 01/19/19 20:27 Urine RBC (Auto) 2 /hpf (0-3) 01/19/19 20:27 Ur Squamous Epith Cells < 1 /hpf (0-5) 01/19/19 20:27 O2 Sat by Pulse Oximetry: 98 (RA) Pulse Ox Interpretation: Normal Medical Decision Making Medical Decision Making: Assessment: inguinal hernia plans: -- chem labs -- blood work -- abd and pelvis CT scan -- obstructive series -- Morphine -- toradol Pt was seen by surgical scrub tech and it was found to be sports hernia. Pt admits to working out more. A request for CAT scan was made and pt was medicated for pain. Obstruction series showed nonspecific gas pattern. Pt was given Dr. Stafford's number to f/u and advise continue use of Tramadol in addition with Naprosyn. Disposition Counseled Patient/Family Regarding: Studies Performed, Diagnosis, Need For Followup, Rx Given - Disposition Referrals: Sherin Stafford MD [Staff Provider] - Disposition: HOME/ ROUTINE Disposition Time: 21:39 Condition: STABLE Additional Instructions: follow up with Dr. Stafford within 2 days call to make an appointment take pain medication as needed return to ER if symptoms worsens or progress Prescriptions: Naproxen [Naprosyn] 500 mg PO BID PRN #16 tab PRN Reason: Pain, Moderate (4-7) Instructions: Inguinal and Femoral (Groin) Hernias Forms: [facility] [employer] (Gu[place]ian), General Discharge Instructions - Clinical Impression Clinical Impression: Inguinal hernia - Scribe Statement The provider has reviewed the documentation as recorded by the Janny Mendez Do Provider Attestation: All medical record entries made by the Scribe were at my direction and personally dictated by me. I have reviewed the chart and agree that the record accurately reflects my personal performance of the history, physical exam, medical decision making, and the department course for this patient. I have also personally directed, reviewed, and agree with the discharge instructions and disposition.
[2019-01-19 21:52] VITALS: BP 125/71; PULSE 58; RESP 20; TEMP 98
--- NOTE | 2019-01-20 12:14 | RAD ---
Date of service: 01/19/2019 PROCEDURE: Radiographs of the chest and abdomen (obstructive series) HISTORY: abd pain COMPARISON: No prior. TECHNIQUE: AP radiograph of the chest, with upright and supine radiographs of the abdomen. 3 views obtained. FINDINGS: CHEST: Lungs: Clear. Cardiovascular: Normal size heart. No pulmonary vascular congestion. No aortic atherosclerotic calcification present Pleura: No pleural fluid. No pneumothorax. Other findings: None. ABDOMEN AND PELVIS: Bowel: Mild constipation noted, otherwise unremarkable bowel gas pattern. No evidence of mechanical obstruction. Free air: None. Bones: Unremarkable. Other findings: None. IMPRESSION: Mild constipation noted, otherwise unremarkable radiographs of chest and abdomen. No evidence of mechanical bowel obstruction.
== END 2019-01-19 21:52 | disposition home or self-care (01) ==
LOC: C.ER 19:26
DX: K40.20 Bilateral inguinal hernia, without obstruction or gangrene, not specified as recurrent (principal)
CPT/HCPCS: 74022; 80053; 81001; 85025; 87086; 87491; 87591; 96374; 96375; 99284; J1885; J2270; Q9967

== ENCOUNTER 2019-01-29 09:49 | Day surgery (SDC) | payer MEDICAID ==
[2019-01-29 09:49] VITALS: BMI 29.2
--- NOTE | 2019-01-29 11:00 | C.PDOC ---
History Of Present Illness WORSENING ABD PAIN X 1 MO. +B/L INGUINAL HERNIA. PAIN WORSE W SITTING, PUSHING. NO NV, ABD SWELL, FEVER EXAM NAD ABD +B/L INGUINAL TEND NO PALP MASS REMAINDER NEG Time Seen by Provider: 01/29/19 10:33 Chief Complaint (Nursing): Medical Clearance History Per: Patient History/Exam Limitations: no limitations Onset/Duration Of Symptoms: Days Current Symptoms Are (Timing): Still Present Severity: Moderate Past Medical History Reviewed: Historical Data, Nursing Documentation, Vital Signs Vital Signs: Last Vital Signs Temp 97.9 F 01/29/19 10:07 Pulse 56 L 01/29/19 10:07 Resp 18 01/29/19 10:07 BP 128/87 01/29/19 10:07 Pulse Ox 100 01/29/19 10:07 - Medical History PMH: Diabetes, Gastrointestinal Ulcer, HTN, Hypercholesterolemia, Pancreatitis Surgical History: Tonsillectomy Family History: States: Diabetes, Hypertension - Social History Hx Tobacco Use: Yes (5-6 cigarettes > 20 years old ) Hx Alcohol Use: Yes Hx Substance Use: Yes - Immunization History Hx Tetanus Toxoid Vaccination: No Hx Influenza Vaccination: No Hx Pneumococcal Vaccination: No Review Of Systems Except As Marked, All Systems Reviewed And Found Negative. Constitutional: Negative for: Fever, Chills Gastrointestinal: Positive for: Abdominal Pain. Negative for: Nausea, Vomiting Physical Exam - Physical Exam Appears: No Acute Distress Skin: Normal Color, Warm, Dry Head: Atraumatic, Normacephalic Eye(s): bilateral: Normal Inspection Neck: Supple Cardiovascular: Rhythm Regular Respiratory: Other (NARD) Gastrointestinal/Abdominal: Soft, Tenderness (bilateral inguinal tenderness), No Mass (palpable) Neurological/Psych: Oriented x3, Normal Speech ED Course And Treatment - Laboratory Results Result Diagrams: 01/29/19 12:25 01/29/19 12:25 ECG: Interpreted By Me ECG Rhythm: Sinus Bradycardia ECG Interpretation: Normal Rate From EC O2 Sat by Pulse Oximetry: 100 (RA) Pulse Ox Interpretation: Normal - Physician Consult Information Time Consulting Physician Contacted: 10:59 Physician Contacted: Delfino Montaño Outcome Of Conversation: ADMIT TO HIS SERVICE Disposition Counseled Patient/Family Regarding: Studies Performed, Diagnosis - Disposition Disposition: HOSPITALIZED Disposition Time: 11:00 Condition: STABLE - Clinical Impression Clinical Impression: Inguinal pain, Abdominal pain - Scribe Statement The provider has reviewed the documentation as recorded by the Stephyibe Edith Lazcano Provider Attestation: All medical record entries made by the Scribe were at my direction and personally dictated by me. I have reviewed the chart and agree that the record accurately reflects my personal performance of the history, physical exam, medical decision making, and the department course for this patient. I have also personally directed, reviewed, and agree with the discharge instructions and di sposition.
[2019-01-29] MEDS ORDERED: Sodium Chloride 0.9% 1,000 ML IV ONE (12:06)
[2019-01-29 12:34] LABS: BASO % 0.8 % (0.0-2.0); EOS # 0.2 K/uL (0.0-0.7); EOS % 3.9 % (0.0-4.0); HEMOGLOBIN 14.3 g/dL (12.0-18.0); LYMPH % 41.3 % (20.0-40.0); MEAN CELL VOLUME 84.2 fL (80.0-94.0); MEAN CORPUSCULAR HEMOGLOBIN 27.4 pg (27.0-31.0); MEAN CORPUSCULAR HGB CONC 32.6 g/dL (33.0-37.0); MEAN PLATELET VOLUME 10.2 fL (7.2-11.7); MONO # 0.5 K/uL (0.0-0.8); MONO % 10.5 % (0.0-10.0); NEUT # 2.1 K/uL (1.8-7.0); NEUT % 43.5 % (50.0-75.0); NRBC % 0.2 % (0.0-2.0); RBC 5.21 Mil/uL (4.40-5.90); RED CELL DISTRIBUTION WIDTH 14.4 % (11.5-14.5); WHITE BLOOD COUNT 4.9 K/uL (4.8-10.8)
[2019-01-29 12:38] LABS: SQUAMOUS EPITHIAL 1 /hpf (0-5); URINE BILIRUBIN NEGATIVE (NEGATIVE); URINE BLOOD NEGATIVE (NEGATIVE); URINE CLARITY Clear (Clear); URINE COLOR Yellow (YELLOW); URINE GLUCOSE (UA) NORMAL (Normal); URINE LEUKOCYTE ESTERASE NEG Leu/uL (Negative); URINE PROTEIN NEGATIVE (NEGATIVE); URINE UROBILINOGEN NORMAL mg/dL (0.2-1.0)
[2019-01-29 13:00] LABS: ALB/GLOB RATIO 1.6 (1.0-2.1); ALBUMIN 4.2 g/dL (3.5-5.0); ALT/SGPT 29 U/L (21-72); AST/SGOT 37 U/L (17-59); BLOOD UREA NITROGEN 19 mg/dL (9-20); CALCIUM 9.2 mg/dl (8.6-10.4); GFR NON-AFRICAN AMERICAN > 60
[2019-01-29] MEDS ORDERED: Lactated Ringer's 1,000 ML IV ONE ×3 (14:17)
[2019-01-29] MEDS ORDERED: Propofol 10 mg/ml Inj (20 ML) ONE (15:23)
[2019-01-29] MEDS ORDERED: Midazolam 2 MG/2 ML VIAL ONE (15:23)
[2019-01-29] MEDS ORDERED: Lidocaine Hydrochloride 5 ML INJ ONE (15:28)
[2019-01-29] MEDS ORDERED: ceFAZolin 1 gm in NS 1 GM/100 ML BAG IVPB ONE (16:08)
[2019-01-29] MEDS ORDERED: Bupivacaine 0.25% 20 ML INJ IJ ONE ×2 (16:09→17:14)
[2019-01-29] MEDS ORDERED: Lidocaine Hydrochloride 10 ML INJ ONE (16:09)
[2019-01-29] MEDS ORDERED: Oxycodone/Acetaminophen 5/325 mg Tab PO PRN (17:18)
[2019-01-29] MEDS: HYDROmorphone 0.5 mg/0.5 ml ISec IVP PRN ×4 (17:35→18:25)
[2019-01-29] MEDS ORDERED: HYDROmorphone 0.5 mg/0.5 ml ISec ONE (17:39)
[2019-01-29] MEDS ORDERED: Lactated Ringer's 500 ML IV ONE (19:00)
[2019-01-29 21:25] VITALS: TEMP 98
[2019-01-29 21:26] VITALS: BP 113/53; PULSE 55; RESP 15
--- NOTE | 2019-01-30 06:21 | OP ---
PROCEDURE DATE: 01/29/2019 PREOPERATIVE DIAGNOSIS: Bilateral incarcerated inguinal hernia. POSTOPERATIVE DIAGNOSIS: Bilateral incarcerated inguinal hernia. PROCEDURE PERFORMED: Repair of bilateral incarcerated inguinal hernia. SURGEON: Delfino Montaño MD [employer] SPECIALIST: Chris Pollack MD TYPE OF ANESTHESIA: General endotracheal. ESTIMATED BLOOD LOSS: Less than 30 mL. POSTOPERATIVE CONDITION: Stable. INDICATIONS FOR SURGERY: This is a 38-year-old male admitted through the emergency room today with bilateral incarcerated inguinal hernia. He will undergo operative repair. DESCRIPTION OF PROCEDURE: The patient was taken to the operating room. General anesthesia was administered. Both groins were prepped and draped. A standard left inguinal incision was made, and an external oblique aponeurosis was opened. The spermatic cord was looped with a Evan drain. An indirect hernia sac was found, and dissected free down with space and transected. A high ligation was performed. Since the internal ring was not severely widened, a ____ repair including tightening of the ring was performed with interrupted 2-0 Prolene. The wound was irrigated with saline and repaired with 2-0 Monocryl and skin clips. On right, repair and findings were basically the same. The patient tolerated the procedure well, and returned to recovery room in stable condition. Delfino Montaño MD
[2019-01-30 07:21] VITALS: O2SAT 100
== END 2019-01-29 21:00 | disposition home or self-care (01) ==
LOC: C.ER 09:49 → C.SDS 11:31
PROVIDERS: ATTEND Surgery
DX: K40.20 Bilateral inguinal hernia, without obstruction or gangrene, not specified as recurrent (principal); E11.9 Type 2 diabetes mellitus without complications; E78.00 Pure hypercholesterolemia, unspecified; I10 Essential (primary) hypertension; F17.210 Nicotine dependence, cigarettes, uncomplicated
CPT/HCPCS: 36415; 49507; 80053; 81001; 85025; 86850; 86900; 88304; 93005; 99283; J0690; J1170; J1885; J2250; J2405; J2704; J3010; J7030; J7120